=== PATIENT | female | born 1955 | race Caucasian/White ===

== ENCOUNTER 2016-08-12 15:10 | Observation (INO) ==
--- NOTE | 2016-08-12 18:53 | Emergency Department Note ---
Disposition Clinical Impression: Pneumoperitoneum of unknown etiology Disposition: Admitted As Inpatient Condition: Undetermined Referrals: Melodie Calhoun FRENCH TEACHER [Primary Care Provider] - Forms: Work/School Release, ED Satisfaction Letter Time of Disposition: 20:10 Abdominal Pain HPI - General Chief Complaint: ED Abdominal Pain Stated Complaint: Perferated bowel Time Seen by Provider: 08/12/16 18:51 Source: patient Mode of arrival: ambulatory Limitations: no limitations Nursing Notes Reviewed: Yes Vital Signs Reviewed: Yes - History of Present Illness HPI Narrative: 61-year-old female with history of GERD, arrives [facility] emergency department after receiving a CT scan today for chronic abdominal pain. Patient's CT scan revealed pneumatosis intestinalis, free air in the peritoneum, multiple dilated bowel. It was noted that the pneumatosis has been found multiple times. The patient states her last abdominal pain was roughly 2 weeks ago. She states she has no abdominal pain at this time other than when the patient is palpated in her lower abdomen. The patient does admit to intermittent nausea and vomiting. Her last episode of nausea and vomiting was this morning but she treats this to the oral contrast. The patient denies any other complaints according fevers, chills, difficulty breathing, chest pain, focalized weakness. The patient states that she was called by her PCP this morning and was instructed to come to the emergency department. She denies any other complaints. Pt Subjective Complaint: abdominal pain Pain Scale: 0 Improves with: nothing Worsens with: nothing Context: history of similar episodes Associated symptoms: Reports: nausea, vomiting. Denies: diarrhea, fever, chills , constipation, dysuria, hematemesis, hematochezia, melena, hematuria, anorexia Treatments prior to arrival: none - Related Data Allergies Allergy/AdvReac Type Severity Reaction Status Date / Time No Known Allergies Allergy Verified 08/12/16 15:20 All systems ED: reviewed and negative except as stated. Constitutional: Denies: fever, chills, weakness, weight change Eyes: Denies: eye pain, eye discharge, vision change Cardiovascular: Denies: chest pain, palpitations, dyspnea on exertion, edema, syncope Respiratory: Denies: cough, dyspnea, wheezes, hemoptysis, stridor Gastrointestinal: Reports: abdominal pain, nausea, vomiting. Denies: diarrhea, constipation, hematemesis, melena, hematochezia Genitourinary: Denies: dysuria, frequency, hematuria, discharge Musculoskeletal: Denies: back pain, neck pain, arthralgia, myalgia Integumentary: Denies: rash, abrasion, lesions Neurological: Denies: headache, weakness, numbness, paresthesias, confusion, abnormal gait, vertigo Abdominal Pain PMH - Past Medical History Medical history: Reports: GERD Female Surgical History: Reports: other HOUSEKEEPING/LAUNDRY history: Reports: no HOUSEKEEPING/LAUNDRY history Psychiatric history: Reports: anxiety - Social History Smoking status: Current every day smoker Alcohol use: Reports: none Drug use: Reports: none Physical Exam - General Limitations: no limitations General appearance: alert - Head Head exam: atraumatic, normocephalic, normal inspection - Eye Eye exam: Present: normal appearance, PERRL, EOMI - ENT ENT exam: normal exam, normal oropharynx, mucous membranes moist - Neck Neck exam: Present: normal inspection, full ROM, trachea midline - Respiratory Respiratory exam: Present: normal lung sounds bilaterally - Cardiovascular Cardiovascular exam: Present: regular rate, normal rhythm, normal heart sounds - Abdominal Exam Abdominal exam: Present: soft, tenderness, distention, diminished bowel sounds, ascites. Absent: Non-Tender, guarding, rebound, rigidity, heel tap sign, Valdez 's sign, Rovsing's sign - Extremities Exam Extremities exam: Present: normal inspection, full ROM. Absent: tenderness, pedal edema - Back Exam Back exam: Present: normal inspection, full ROM. Absent: tenderness - Neurological Exam Neurological exam: Present: alert, oriented X3 Course - Consultations Consultation #1: Spoke with Dr. Bear who will come to evaluate patient. She is resting comfortably at this time. Time: 19:40 Consultation #2: Spoke with Dr. Bear again and surgery after evaluating the patient. He states that he will admit the patient to their service and likely drain the pelvic fluid. Time: 20:09 Vital Signs Temperature 98.2 F 08/12/16 15:20 Pulse Rate 83 08/12/16 15:20 Respiratory Rate 16 08/12/16 15:20 Blood Pressure 151/90 08/12/16 15:20 O2 Sat by Pulse Oximetry 96 08/12/16 15:20 Temperature 98.2 F 08/12/16 15:20 Pulse Rate 78 08/12/16 19:03 Respiratory Rate 16 08/12/16 19:03 Blood Pressure 134/68 08/12/16 19:03 O2 Sat by Pulse Oximetry 97 08/12/16 19:03 Oxygen Delivery Oxygen Delivery Room Air Abdominal Pain - MDM Narrative Medical decision making narrative: Patient's physical exam is relatively benign with a benign workup here in the emergency department. After being evaluated by surgery, we will admit the patient to their service for further workup and evaluation as well as likely procedure. Patient agrees to this plan. - Medical Records Medical records reviewed: Yes I reviewed the patient's medical records. - Lab Data Lab results reviewed: Yes I reviewed the patient's lab results. Result diagrams: 08/12/16 18:59 08/12/16 18:59 Lab Results 08/12/16 08/12/16 08/12/16 Range/Units 18:59 18:59 18:59 WBC 6.5 (4.3-11.1) K/mcL RBC 4.82 (3.82-4.97) M/mcL Hgb 14.1 (11.5-15.4) g/dL Hct 42.5 (35.3-44.9) % MCV 88.2 (83.0-100.0) fL MCH 29.3 (28.0-33.3) pg MCHC 33.2 (31.6-35.5) g/dL RDW 13.2 (11.5-14.5) % Plt Count 333 (140-400) K/mcL MPV 9.4 (9.4-12.4) fL Immature Gran % 0.3 (0-4) % Seg Neutrophils % 56.1 % Lymphocytes % 30.8 % Monocytes % 6.8 % Eosinophils % 5.7 % Basophils % 0.3 % Neutrophils # 3.7 (1.6-8.9) K/mcL Lymphocytes # 2.0 (0.6-4.6) K/mcL Monocytes # 0.4 (0.0-1.3) K/mcL Eosinophils # 0.4 (0.0-0.6) K/mcL Basophils # 0.0 (0.0-0.2) K/mcL PT (9.4-12.1) Seconds INR APTT (26.0-36.0) Seconds Sodium 137 (136-145) mEq/L Potassium 3.9 (3.5-4.5) mEq/L Chloride 105 (98-109) mEq/L Carbon Dioxide 23 (19-29) mEq/L BUN 8 (7-20) mg/dL Creatinine 0.89 (0.57-1.11) mg/dL Est GFR ( Amer) > 60 (> 60) Est GFR (Non-Af Amer) > 60 (> 60) BUN/Creatinine Ratio 9 (6-26) Glucose 90 (70-99) mg/dL Calculated Osmolality 282 (280-300) Lactic Acid 0.9 (0.5-2.2) mmol/L Calcium 9.6 (8.6-10.8) mg/dL 08/12/16 Range/Units 18:59 WBC (4.3-11.1) K/mcL RBC (3.82-4.97) M/mcL Hgb (11.5-15.4) g/dL Hct (35.3-44.9) % MCV (83.0-100.0) fL MCH (28.0-33.3) pg MCHC (31.6-35.5) g/dL RDW (11.5-14.5) % Plt Count (140-400) K/mcL MPV (9.4-12.4) fL Immature Gran % (0-4) % Seg Neutrophils % % Lymphocytes % % Monocytes % % Eosinophils % % Basophils % % Neutrophils # (1.6-8.9) K/mcL Lymphocytes # (0.6-4.6) K/mcL Monocytes # (0.0-1.3) K/mcL Eosinophils # (0.0-0.6) K/mcL Basophils # (0.0-0.2) K/mcL PT 11.4 (9.4-12.1) Seconds INR 1.1 APTT 27.1 (26.0-36.0) Seconds Sodium (136-145) mEq/L Potassium (3.5-4.5) mEq/L Chloride (98-109) mEq/L Carbon Dioxide (19-29) mEq/L BUN (7-20) mg/dL Creatinine (0.57-1.11) mg/dL Est GFR ( Amer) (> 60) Est GFR (Non-Af Amer) (> 60) BUN/Creatinine Ratio (6-26) Glucose (70-99) mg/dL Calculated Osmolality (280-300) Lactic Acid (0.5-2.2) mmol/L Calcium (8.6-10.8) mg/dL - Radiology Data Radiology results reviewed: Yes I reviewed the patient's radiology results. Attestation Statement - Attestation Attestation: I examined this patient and my medical decision-making was reviewed with the [employer] SERVICES MANAGER/PA/Advanced Practice Nurse/Resident Physician. I agree with the documented findings, disposition and treatment plan as described except to the extent set forth below. Face to face time provided Patient appears in no acute distress on exam. Transcribed CT report results reviewed by me.
[2016-08-12] MEDS ORDERED: Famotidine 20 MG TABLET PO STA (19:01)
[2016-08-12 19:05] LABS: Basophils % 0.3 %; Eosinophils # 0.4 K/mcL (0.0-0.6); Eosinophils % 5.7 %; Hematocrit 42.5 % (35.3-44.9); Hemoglobin 14.1 g/dL (11.5-15.4); Immature Granulocytes % 0.3 % (0-4); Lymphocytes % 30.8 %; Mean Corpuscular HGB Conc 33.2 g/dL (31.6-35.5); Mean Corpuscular Hemoglobin 29.3 pg (28.0-33.3); Mean Corpuscular Volume 88.2 fL (83.0-100.0); Mean Platelet Volume 9.4 fL (9.4-12.4); Monocytes # 0.4 K/mcL (0.0-1.3); Monocytes % 6.8 %; Neutrophils # 3.7 K/mcL (1.6-8.9); Platelet Count 333 K/mcL (140-400); Red Blood Count 4.82 M/mcL (3.82-4.97); Red Cell Distribution Width 13.2 % (11.5-14.5); Segmented Neutrophils % 56.1 %
[2016-08-12 19:16] LABS: BUN/Creatinine Ratio 9 (6-26); Blood Urea Nitrogen 8 mg/dL (7-20); Calcium 9.6 mg/dL (8.6-10.8); Carbon Dioxide 23 mEq/L (19-29); Chloride 105 mEq/L (98-109); Glucose 90 mg/dL (70-99); Osmolality,Calculated 282 (280-300); Potassium 3.9 mEq/L (3.5-4.5); Sodium 137 mEq/L (136-145); eGFR For African Americans > 60 (> 60); eGFR For Non-African Americans > 60 (> 60)
[2016-08-12 19:20] LABS: INR 1.1; Prothrombin Time 11.4 Seconds (9.4-12.1)
[2016-08-12 19:23] LABS: Activated Partial Thrombo Time 27.1 Seconds (26.0-36.0)
--- NOTE | 2016-08-12 20:12 | General Surg History&Physical ---
Date of Encounter: 08/13/16 Time of Encounter: 20:09 Assessment and Plan (1) Pneumatosis intestinalis Current Visit: Yes Status: Acute The assessment and plan as outlined above was discussed with the patient and/or family members who expressed understanding and agreement. All questions were answered. I reviewed the results of the CT scan of the abdomen and pelvis with the patient and family. I am unsure as to the cause behind the patient's CT scan findings. I reviewed patient's prior evaluation by Dr. Fuentes in 2014 and the patient was treated with IV antibiotics for a short intrahosopital course and was followed as an outpatient. I think it would be appropriate to start antibiotics during this admission and plan on a CT scan guided drainage of the pelvic fluid in the am. Will request that the fluid be sent for cytology and culture. Additionally, will plan on an outpatient colonoscopy (patient has never had one) and will closely follow the patient as an outpatient once discharged. (2) Free intraperitoneal air Current Visit: Yes Status: Acute The assessment and plan as outlined above was discussed with the patient and/or family members who expressed understanding and agreement. All questions were answered. Please see the above A/P. History of Present Illness Chief complaint: ab HPI: Ms. Cardenas is a 61 year old female with a past mediical history significant for GERD Past Med Surg Social Fam HX - Past Medical History Medical history: GERD Psychiatric history: anxiety - Social History Smoking Status: Current every day smoker Smokeless Tobacco Status: No Alcohol use: none Drug use: none - Family History Mother Living Status: Age at : 85 Cause of : old age Father Living Status: Age at : 68 Cause of : cancer Hx Family Cancer: Yes (Unknown) Medications and Allergies ALPRAZolam [Xanax 0.5 MG Tablet] 0.5 mg PO BID PRN 08/12/16 [History] FLUoxetine HCl [Prozac] 40 mg PO QAM 08/12/16 [History] Ranitidine HCl [Zantac] 300 mg PO DAILY 08/12/16 [History] Allergies No Known Allergies Allergy (Verified 08/12/16 15:20) Review of Systems All systems PM: reviewed and no additional remarkable complaints except as stated All systems PM: A 10-system review of systems was performed and is negative for pertinent findings except as documented above in the HPI. General Surgery Exam Initial Vital Signs Temp Pulse Resp BP Pulse Ox 98.2 F 83 16 151/90 96 08/12/16 15:20 08/12/16 15:20 08/12/16 15:20 08/12/16 15:20 08/12/16 15:20 - General physical appearance well developed, well nourished, no distress - Eyes PERRL, normal ocular movement - Neck no bruits, trachea midline, other (mass noted in the left submandibular region. Non tender to palpation) - Respiratory normal expansion, normal respiratory effort, other (bilateral ronchi noted) - Cardiovascular Cardiovascular exam: Present: RRR, no murmurs/rubs/gallops - Abdomen Abdomen general surgery: Present: bowel sounds present, soft (mild lower abdominal pain to palpation.) - Neurologic Present: CN 2-12 grossly intact, normal coordination, normal sensation - Musculoskeletal Present: other (No clubbing, cyanosis, or edema.) - Psychiatric Psychiatric general surgery: Present: A&Ox3, appropriate, oriented to person, oriented to place Results - Labs 08/12/16 18:59 08/12/16 18:59 Diabetes panel 08/12/16 Range/Units 18:59 Sodium 137 (136-145) mEq/L Potassium 3.9 (3.5-4.5) mEq/L Chloride 105 (98-109) mEq/L Carbon Dioxide 23 (19-29) mEq/L BUN 8 (7-20) mg/dL Creatinine 0.89 (0.57-1.11) mg/dL Glucose 90 (70-99) mg/dL Calcium 9.6 (8.6-10.8) mg/dL Calcium panel 08/12/16 Range/Units 18:59 Calcium 9.6 (8.6-10.8) mg/dL Pituitary panel 08/12/16 Range/Units 18:59 Sodium 137 (136-145) mEq/L Potassium 3.9 (3.5-4.5) mEq/L Chloride 105 (98-109) mEq/L Carbon Dioxide 23 (19-29) mEq/L BUN 8 (7-20) mg/dL Creatinine 0.89 (0.57-1.11) mg/dL Glucose 90 (70-99) mg/dL Calcium 9.6 (8.6-10.8) mg/dL Adrenal panel 08/12/16 Range/Units 18:59 Sodium 137 (136-145) mEq/L Potassium 3.9 (3.5-4.5) mEq/L Chloride 105 (98-109) mEq/L Carbon Dioxide 23 (19-29) mEq/L BUN 8 (7-20) mg/dL Creatinine 0.89 (0.57-1.11) mg/dL Glucose 90 (70-99) mg/dL Calcium 9.6 (8.6-10.8) mg/dL All other labs normal. - Imaging Abdominal x-ray: report reviewed, image reviewed (noted pneumotosis intestinalisis. Small amount of free air. Fluid in the pelvis.)
[2016-08-12] MEDS ORDERED: Ondansetron 4 MG/2 ML VIAL IVP PRN (20:17)
[2016-08-12] MEDS ORDERED: *HR* Morphine 2 MG/ML SYRINGE IVP PRN (20:17)
[2016-08-13] MEDS: *HR* Heparin 5,000 UNIT/ML VIAL SQ SCH ×2 (01:19→07:50)
[2016-08-13] MEDS: 0.9 % Sodium Chloride 1,000 ML IVC SCH ×2 (01:20→10:20)
[2016-08-13] MEDS: Piperacillin/Tazobactam 3.375 GM in D5% in Water (Mini-Bag+) 100 ML IVPB SCH ×2 (01:21→10:17)
[2016-08-13 07:30] LABS: Bilirubin,Urine Negative (Negative); Blood,Urine Negative (Negative); Clarity,Urine Clear (Clear); Color,Urine Yellow (Yellow); Glucose,Urine (UA) Normal (Normal); Ketones,Urine Negative (Negative); Leukocyte Esterase,Urine Negative (Negative); Nitrite,Urine Negative (Negative); PH,Urine 6.5 pH Units (5.0-8.0); Protein,Urine Negative (Neg-Trace); Specific Gravity,Urine 1.011 (1.010-1.025); Urobilinogen,Urine Normal (Normal)
[2016-08-13] MEDS ORDERED: Pantoprazole 40 MG VIAL IVP SCH (09:00)
--- NOTE | 2016-08-13 09:48 | IR Procedure Note ---
Date of procedure: 08/13/16 Consent Obtained: Written consent Timeout: Correct patient and procedure verified, Correct site verified, Time out performed, Skin prep completed Local anesthetic: Lidocaine 1% Indications: Ascites, pneumatosis within bowel. Procedure Performed: Paracentesis for diagnostic testing Site/Technique: RLQ Results/Findings: 200ml of cloudy yellow fluid obtained. Sample sent to lab. Estimated blood loss (cc): 1 Complications: None; Tolerated procedure well Post Procedure Treatment Plan: Monitoring in pts room
--- NOTE | 2016-08-13 14:15 | Discharge Summary ---
Date of Encounter: 08/13/16 Time of Encounter: 14:00 - Discharge Diagnosis (1) Free intraperitoneal air Priority: Primary Status: Acute (2) Pneumatosis intestinalis Priority: Primary Status: Acute - Discharge Medications Prescriptions: Amoxicillin/Clavulanate [Augmentin] 875 mg PO BIDWM #28 tablet Home Medications: ALPRAZolam [Xanax 0.5 MG Tablet] 0.5 mg PO BID PRN 08/12/16 [History] FLUoxetine HCl [Prozac] 40 mg PO QAM 08/12/16 [History] Ranitidine HCl [Zantac] 300 mg PO DAILY 08/12/16 [History] Amoxicillin/Clavulanate [Augmentin] 875 mg PO BIDWM #28 tablet 08/13/16 [Rx] Allergies/Adverse Reactions: Allergies No Known Allergies Allergy (Verified 08/12/16 15:20) General Surgery Exam Initial Vital Signs Temp Pulse Resp BP Pulse Ox 98.2 F 83 16 151/90 96 08/12/16 15:20 08/12/16 15:20 08/12/16 15:20 08/12/16 15:20 08/12/16 15:20 - General physical appearance well developed, well nourished, no distress - Eyes normal ocular movement - ENT normal mucosa, atraumatic, normocephalic - Neck trachea midline - Respiratory normal expansion, normal respiratory effort, clear to auscultation - Cardiovascular Cardiovascular exam: Present: RRR, 15, 16 - Abdomen Abdomen general surgery: Present: bowel sounds present, soft, non tender - Integumentary Integumentary general surgery: Present: warm and dry - Neurologic Present: CN 2-12 grossly intact, normal coordination, normal sensation - Musculoskeletal Present: normal gait, normal posture - Psychiatric Psychiatric general surgery: Present: appropriate, oriented to person, oriented to place, oriented to time, speech is normal, memory intact Date of admission: 08/12/16 20:12 Primary care physician: Melodie Calhoun CNP Consults: 08/13/16 06:44 Consult to Interventional Radiology [CONS] Stat Consulting Provider: Radiology Interventional Cols Reason for Consult: Pneumotosis intestinalis with minute free air (this has been present for at least [address] scan guided drainage of pelvic fluid (for culture and cytology please). Call Completed: No Discharging clinician: Navin Mendoza. [facility]) Anticipated date of discharge: 08/13/16 - Patient Status Disposition: Home, Self-Care Condition: Good Functional capacity at discharge: independent ambulation Overall status at discharge: patient is back to baseline - Discharge Instructions Follow Up With: Melodie Calhoun CNP [Primary Care Provider] - Donnie Fuentes MD [Partnered Physician] - 08/17/16 9:45 am - Diet and Activity Activity: increase activity as tolerated Diet: advance to your usual diet - Hospital Course Hospital course: Ms. Cardenas is a 61 year old female presented to the hospital after having an abnormal outpatient CAT scan showing intra-abdominal free air and pneumatosis intestinalis. She also had free fluid in her pelvis. She was admitted to the hospital and started on IV antibiotic therapy. Interventional radiology was consulted for drainage of pelvic fluid collection. Fluid collections were sent for cultures and cytology. The patient has been started on a diet and is tolerating this without any symptoms. She denies any abdominal pain or nausea and vomiting. Her vital signs have been completely stable. Laboratory studies are stable. We will begin discharge planning to home on oral antibiotics and plan for outpatient follow-up in the upcoming days. The patient will need an outpatient colonoscopy for further evaluation. - Time Spent with Patient Total time spent providing and/or coordinating discharge services: Less than 30 minutes Labs on day of discharge: Labs from last 24 hours 08/13/16 06:15 Urine Color Yellow Urine Clarity Clear Urine pH 6.5 Ur Specific [place] 1.011 Urine Protein Negative Urine Glucose (UA) Normal Urine Ketones Negative Urine Blood Negative Urine Nitrite Negative Urine Bilirubin Negative Urine Urobilinogen Normal Ur Leukocyte Esterase Negative Ur Culture Indicated? NO - Impressions ITS Impressions Needle Aspiration CT 08/13/16 00:00 IMPRESSION: Successful CT guided fluid aspiration of a small amount of cloudy yellow ascites within the pelvis. D/ / Monroe Chris MD / Monroe Chris MD Interpreting Provider: Monroe Chris MD - Attending Attestation I examined this patient and my medical decision-making was reviewed with the INSTRUMENT TECH/PA/Advanced Practice Nurse/Resident Physician. I agree with the documented findings, disposition and treatment plan as described except to the extent set forth below.
[2016-08-13 15:08] VITALS: BP 119/70
== END 2016-08-13 15:20 | disposition home or self-care (01) ==
LOC: 3ANU 15:10 → EMEROO 15:10 → 3ANU 20:37
PROVIDERS: ADMIT Surgery; ATTEND Surgery
PROC: IRDRAIN (2016-08-13 11:00)

== ENCOUNTER 2016-11-15 16:00 | Inpatient (IN) ==
[2016-11-15 18:05] LABS: Bilirubin,Urine Small (Negative); Blood,Urine Negative (Negative); Clarity,Urine Cloudy (Clear); Color,Urine Dark Yellow (Yellow); Glucose,Urine (UA) Normal (Normal); Ketones,Urine Trace mg/dL (Negative); Leukocyte Esterase,Urine Small (Negative); Nitrite,Urine Negative (Negative); Protein,Urine Negative (Neg-Trace); Urobilinogen,Urine Normal (Normal)
[2016-11-15 18:07] LABS: Bacteria,Urine Moderate per hpf (None-Few); Squamous Epithelial Cell,Urine Many per lpf (None-Few); WBC,Urine 15-30 per hpf (0-3)
[2016-11-15 18:40] LABS: Basophils % 0.3 %; Eosinophils # 0.2 K/mcL (0.0-0.6); Hematocrit 43.2 % (35.3-44.9); Hemoglobin 13.5 g/dL (11.5-15.4); Immature Granulocytes % 0.3 % (0-4); Lymphocytes # 1.5 K/mcL (0.6-4.6); Lymphocytes % 19.6 %; Mean Corpuscular HGB Conc 31.3 g/dL (31.6-35.5); Mean Corpuscular Volume 89.6 fL (83.0-100.0); Mean Platelet Volume 9.4 fL (9.4-12.4); Monocytes # 0.4 K/mcL (0.0-1.3); Monocytes % 5.8 %; Neutrophils # 5.5 K/mcL (1.6-8.9); Platelet Count 418 K/mcL (140-400); Red Blood Count 4.82 M/mcL (3.82-4.97); Red Cell Distribution Width 14.4 % (11.5-14.5)
[2016-11-15 18:53] LABS: Albumin 3.1 g/dL (3.5-5.0); Albumin/Globulin Ratio 0.7 (1.1-2.2); Bilirubin,Direct 0.2 mg/dL (0.0-0.5); Bilirubin,Indirect 0.1 mg/dL (0.0-1.2); Bilirubin,Total 0.3 mg/dL (0.2-1.2); Calcium 9.3 mg/dL (8.6-10.8); Globulin 4.3 g/dL (2.4-3.5); Potassium 4.7 mEq/L (3.5-4.5); Total Protein 7.4 g/dL (6.0-8.3)
[2016-11-15] MEDS ORDERED: MetroNIDAZOLE 500 MG/100 ML 500 MG/100 ML BAG IVPB ONE (20:04)
[2016-11-15] MEDS ORDERED: 0.9 % Sodium Chloride 1,000 ML IVC ONE (20:04)
[2016-11-15] MEDS ORDERED: *HR* Morphine 2 MG/ML SYRINGE IVP ONE (20:07)
[2016-11-15] MEDS ORDERED: Piperacillin/Tazobactam 3.375 GM in D5% in Water (Mini-Bag+) 100 ML IVPB ONE (21:49)
--- NOTE | 2016-11-15 21:50 | Emergency Department Note ---
Disposition Clinical Impression: Pneumoperitoneum, Abdominal pain Disposition: Admitted As Inpatient Condition: Good Referrals: Melodie Calhoun, NADJA [Primary Care Provider] - Forms: Work/School Release, ED Satisfaction Letter Abdominal Pain HPI - General Chief Complaint: ED Abdominal Pain Stated Complaint: abd pain Time Seen by Provider: 11/15/16 19:34 Source: patient Mode of arrival: ambulatory Limitations: no limitations Nursing Notes Reviewed: Yes Vital Signs Reviewed: Yes - History of Present Illness HPI Narrative: 61-year-old female presents emergency Department with concerns of abdominal distention and pain. Patient has a history of abdominal distention with pneumoperitoneum on previous CT scans. Patient states that when this is happening in the past she has required admission with IV antibiotics. Patient states her pain has significantly worsened over the past 2-3 days. Patient reports multiple episodes of nonbilious, nonbloody emesis. She denies recent chest pain, shortness breath, palpitations, syncope, dysuria, hematuria, vaginal bleeding, vaginal discharge, hematochezia or melena. Last bowel movement was this morning Pain Scale: 9 - Related Data Home Medications Medication Instructions Recorded Confirmed ALPRAZolam [Xanax 0.5 MG Tablet] 0.5 mg PO BID PRN 08/12/16 08/12/16 FLUoxetine HCl [Prozac] 40 mg PO QAM 08/12/16 08/12/16 Ranitidine HCl [Zantac] 300 mg PO DAILY 08/12/16 08/12/16 Previous Rx's Medication Instructions Recorded Amoxicillin/Clavulanate [Augmentin] 875 mg PO BIDWM #28 tablet 08/13/16 Allergies Allergy/AdvReac Type Severity Reaction Status Date / Time No Known Allergies Allergy Verified 11/15/16 16:56 All systems ED: reviewed and negative except as stated. Constitutional: Reports: weakness. Denies: fever Cardiovascular: Denies: chest pain, palpitations, paroxysmal nocturnal dyspnea Respiratory: Denies: cough, dyspnea, wheezes Gastrointestinal: Reports: abdominal pain, nausea, vomiting. 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 She has generalized tenderness to palpation but there is no evidence of rigidity, guarding, or rebound. Neuro: A&O to person, place, time and situation. No focal deficits noted on exam Psychiatric: cooperative and appropriate mood and affect. - General Limitations: no limitations General appearance: alert Course - Consultations Consultation #1: I spoke with Dr. Guevara regarding patient's case and presentation who recommended adding Zosyn despite Cipro and Flagyl and starting D5 LR at 100 mL per hour. He states he will evaluate the patient in the emergency department. Time: 21:57 Vital Signs Temperature 97.7 F 11/15/16 16:56 Pulse Rate 97 11/15/16 16:56 Respiratory Rate 20 11/15/16 16:56 Blood Pressure 118/82 11/15/16 16:56 O2 Sat by Pulse Oximetry 99 11/15/16 16:56 Temperature 97.7 F 11/15/16 16:56 Pulse Rate 97 11/15/16 16:56 Respiratory Rate 20 11/15/16 16:56 Blood Pressure 118/82 11/15/16 16:56 O2 Sat by Pulse Oximetry 99 11/15/16 16:56 Oxygen Delivery Oxygen Delivery Room Air Abdominal Pain - Medical Records Medical records reviewed: Yes I reviewed the patient's medical records. - Lab Data Lab results reviewed: Yes I reviewed the patient's lab results. Result diagrams: 11/15/16 18:26 11/15/16 18:26 Lab Results 11/15/16 11/15/16 11/15/16 Range/Units 17:57 18:26 18:26 WBC 7.6 (4.3-11.1) K/mcL RBC 4.82 (3.82-4.97) M/mcL Hgb 13.5 (11.5-15.4) g/dL Hct 43.2 (35.3-44.9) % MCV 89.6 (83.0-100.0) fL MCH 28.0 (28.0-33.3) pg MCHC 31.3 L (31.6-35.5) g/dL RDW 14.4 (11.5-14.5) % Plt Count 418 H (140-400) K/mcL MPV 9.4 (9.4-12.4) fL Immature Gran % 0.3 (0-4) % Seg Neutrophils % 72.0 % Lymphocytes % 19.6 % Monocytes % 5.8 % Eosinophils % 2.0 % Basophils % 0.3 % Neutrophils # 5.5 (1.6-8.9) K/mcL Lymphocytes # 1.5 (0.6-4.6) K/mcL Monocytes # 0.4 (0.0-1.3) K/mcL Eosinophils # 0.2 (0.0-0.6) K/mcL Basophils # 0.0 (0.0-0.2) K/mcL Sodium 138 (136-145) mEq/L Potassium 4.7 H (3.5-4.5) mEq/L Chloride 104 (98-109) mEq/L Carbon Dioxide 26 (19-29) mEq/L BUN 12 (7-20) mg/dL Creatinine 1.54 H (0.57-1.11) mg/dL Est GFR ( Amer) 42 L (> 60) Est GFR (Non-Af Amer) 34 L (> 60) BUN/Creatinine Ratio 8 (6-26) Glucose 100 H (70-99) mg/dL Calculated Osmolality 286 (280-300) Calcium 9.3 (8.6-10.8) mg/dL Total Bilirubin 0.3 (0.2-1.2) mg/dL Direct Bilirubin 0.2 (0.0-0.5) mg/dL Indirect Bilirubin 0.1 (0.0-1.2) mg/dL AST 14 (5-34) Units/L ALT 8 (0-55) Units/L Alkaline Phosphatase 90 (38-126) Units/L Serum Total Protein 7.4 (6.0-8.3) g/dL Albumin 3.1 L (3.5-5.0) g/dL Globulin 4.3 H (2.4-3.5) g/dL Albumin/Globulin Ratio 0.7 L (1.1-2.2) Lipase 18 (8-78) Units/L Urine Color Dark Yellow (Yellow) Urine Clarity Cloudy A (Clear) Urine pH 6.0 (5.0-8.0) pH Units Ur Specific [place] 1.030 H (1.010-1.025) Urine Protein Negative (Neg-Trace) mg/dL Urine Glucose (UA) Normal (Normal) mg/dL Urine Ketones Trace H (Negative) mg/dL Urine Blood Negative (Negative) Urine Nitrite Negative (Negative) Urine Bilirubin Small H (Negative) Urine Urobilinogen Normal (Normal) mg/dL Ur Leukocyte Esterase Small H (Negative) Urine Microscopic WBC 15-30 H (0-3) per hpf Ur Squamous Epith Cells Many H (None-Few) per lpf Urine Bacteria Moderate H (None-Few) per hpf Ur Culture Indicated? YES A (NO) - Radiology Data Radiology results reviewed: Yes I reviewed the patient's radiology results.
[2016-11-15] MEDS: D5% in Lactated Ringers 1,000 ML IVC SCH (22:47)
[2016-11-15] MEDS ORDERED: Lidocaine Viscous Oral Soln 15 ML SOLUTION MM STA (23:04)
[2016-11-16] MEDS: D5% in Lactated Ringers 1,000 ML IVC SCH ×5 (01:01→19:37)
[2016-11-16 02:22] LABS: Prothrombin Time 10.7 Seconds (9.4-12.1)
[2016-11-16] MEDS: Pantoprazole 40 MG VIAL IVP SCH (09:15)
--- NOTE | 2016-11-16 09:25 | General Surg History&Physical ---
Date of Encounter: 11/15/16 Time of Encounter: 22:00 Assessment and Plan (1) Pneumatosis intestinalis Current Visit: No Status: Acute It is a bit perplexing when trying to elucidate a cause of the patient's radiological findings. While normally free air and pneumotosis would usually require emergent surgery, her exam and past history are enough to reconsider and attempt non operative therapy. She has abdominal pain, but she is not peritoneal. She is distended, but she is not obstructed. her WBC and lactate are within normal limits, she is having bowel function. When evaluated as a whole, the decision was made to attempt non operative therapy at this time as she does not require emergent surgery. - NPO - IVF: D5LR, change to MIVF once urinating at least 0.5cc/kg/hr - pain control: morphine - abx: zosyn - NG tube to LIWS - activity as tolerated - strict I/O, vitals q4hrs - cardiology evaluation for risk stratification and patient optimization in case surgery is required - if patient continues to do well, then can either plan for follow up in clinic with plans for elective diagnostic laparoscopy possible exploratory laparotomy or diag lap while inpatient; if she declines, then emergent surgery this admission - DVT prophylaxis The assessment and plan as outlined above was discussed with the patient and/or family members who expressed understanding and agreement. All questions were answered. (2) Pneumoperitoneum Current Visit: Yes Status: Acute It is a bit perplexing when trying to elucidate a cause of the patient's radiological findings. While normally free air and pneumotosis would usually require emergent surgery, her exam and past history are enough to reconsider and attempt non operative therapy. She has abdominal pain, but she is not peritoneal. She is distended, but she is not obstructed. her WBC and lactate are within normal limits, she is having bowel function. When evaluated as a whole, the decision was made to attempt non operative therapy at this time as she does not require emergent surgery. - NPO - IVF: D5LR, change to MIVF once urinating at least 0.5cc/kg/hr - pain control: morphine - abx: zosyn - NG tube to LIWS - activity as tolerated - strict I/O, vitals q4hrs - cardiology evaluation for risk stratification and patient optimization in case surgery is required - if patient continues to do well, then can either plan for follow up in clinic with plans for elective diagnostic laparoscopy possible exploratory laparotomy or diag lap while inpatient; if she declines, then emergent surgery this admission - DVT prophylaxis The assessment and plan as outlined above was discussed with the patient and/or family members who expressed understanding and agreement. All questions were answered. (3) Abdominal pain Current Visit: Yes Status: Acute generalized but non peritoneal on exam - morphine for pain control; if pain remains poorly controlled then it is likely her disease has progressed and she requires sugery; The assessment and plan as outlined above was discussed with the patient and/or family members who expressed understanding and agreement. All questions were answered. Qualifiers: Abdominal location: generalized Qualified Code(s): R10.84 - Generalized abdominal pain (4) Acute renal failure Current Visit: No Status: Acute IVF AM labs, trend Cr, BUN strict I/O to assess UOP (0.5cc/kg/hr) The assessment and plan as outlined above was discussed with the patient and/or family members who expressed understanding and agreement. All questions were answered. Qualifiers: Acute renal failure type: unspecified Qualified Code(s): N17.9 - Acute kidney failure, unspecified (5) SIRS due to infectious process with acute organ dysfunction Current Visit: No Status: Acute - NPO -IVF abx trend labs The assessment and plan as outlined above was discussed with the patient and/or family members who expressed understanding and agreement. All questions were answered. History of Present Illness Chief complaint: abdominal pain HPI: Ms. Cardenas is a 61 year old female who presents with 2-3 days of worsening abdominal pain localized to the mid abdomen with radiation towards her back. The patient states the pain is associated with nausea and vomiting (non bloody, non bilious) which she describes as a 'white foam'. No reported fevers. The patient also reports abdominal distension, but is still having normal bowel function (flatus, stool that is non bloody), and tolerating a diet. She states that her post prandial (about an hour). She had similar symptoms about 3 months ago which were treated non operatively with antibiotics. She also had a recent colonoscopy which was unremarkable besides diverticulosis. General surgery was consulted for evaluation and management. Past Med Surg Social Fam HX - Past Medical History Medical history: COPD (likely due to smoking history but undiagnosed ), GERD, hyperlipidemia Psychiatric history: anxiety, depression - Past Surgical History Surgical History: no surgical history - Social History Smoking Status: Current every day smoker Packs per day: 1 ppd Smokeless Tobacco Status: No Alcohol use: none Drug use: none - Family History Mother Living Status: Father Living Status: Hx Family Cancer: Yes (Unknown) - Additional Family History Additional family history: non contributory Medications and Allergies ALPRAZolam [Xanax 0.5 MG Tablet] 0.5 mg PO BID PRN 08/12/16 [History] FLUoxetine HCl [Prozac] 40 mg PO QAM 08/12/16 [History] Ranitidine HCl [Zantac] 300 mg PO DAILY 08/12/16 [History] Cholecalciferol (Vitamin D3) [Vitamin D3] 10,000 unit PO DAILY 11/15/16 [History ] 3 Allergy/AdvReac Type Severity Reaction Status Date / Time No Known Allergies Allergy Verified 11/15/16 16:56 Review of Systems All systems PM: reviewed and no additional remarkable complaints except as stated All systems PM: A 10-system review of systems was performed and is negative for pertinent findings except as documented above in the HPI. General Surgery Exam Initial Vital Signs Temp Pulse Resp BP Pulse Ox 97.7 F 97 20 118/82 99 11/15/16 16:56 11/15/16 16:56 11/15/16 16:56 11/15/16 16:56 11/15/16 16:56 - General physical appearance well nourished, no distress (but is uncomfortable) - Eyes other (no scleral icterus), normal ocular movement - ENT atraumatic, normocephalic - Respiratory normal expansion, normal respiratory effort, clear to auscultation, other (no audible wheezes on exam) - Abdomen Abdomen general surgery: Present: soft, tender Abdominal Tenderness: Present: diffusely (but non peritoneal) Hernia: Present: none - Integumentary Integumentary general surgery: Present: warm and dry - Neurologic Present: CN 2-12 grossly intact - Psychiatric Psychiatric general surgery: Present: A&Ox3 Results - Labs 11/15/16 18:26 11/15/16 18:26 Abnormal lab results MCHC 31.3 g/dL (31.6-35.5) L 11/15/16 18:26 Plt Count 418 K/mcL (140-400) H 11/15/16 18:26 Potassium 4.7 mEq/L (3.5-4.5) H 11/15/16 18:26 Creatinine 1.54 mg/dL (0.57-1.11) H 11/15/16 18:26 Est GFR ( Amer) 42 (> 60) L 11/15/16 18:26 Est GFR (Non-Af Amer) 34 (> 60) L 11/15/16 18:26 Glucose 100 mg/dL (70-99) H 11/15/16 18:26 Albumin 3.1 g/dL (3.5-5.0) L 11/15/16 18:26 Globulin 4.3 g/dL (2.4-3.5) H 11/15/16 18:26 Albumin/Globulin Ratio 0.7 (1.1-2.2) L 11/15/16 18:26 Urine Clarity Cloudy (Clear) A 11/15/16 17:57 Ur Specific [place] 1.030 (1.010-1.025) H 11/15/16 17:57 Urine Ketones Trace mg/dL (Negative) H 11/15/16 17:57 Urine Bilirubin Small (Negative) H 11/15/16 17:57 Ur Leukocyte Esterase Small (Negative) H 11/15/16 17:57 Urine Microscopic WBC 15-30 per hpf (0-3) H 11/15/16 17:57 Ur Squamous Epith Cells Many per lpf (None-Few) H 11/15/16 17:57 Urine Bacteria Moderate per hpf (None-Few) H 11/15/16 17:57 Ur Culture Indicated? YES (NO) A 11/15/16 17:57 All other labs normal. - Imaging CT scan - abdomen: report reviewed, image reviewed CT scan - chest: report reviewed, image reviewed CT scan - pelvis: report reviewed, image reviewed (dilated small bowel; (+) pneumotosis intestinalis; (+)pneumoperitoneum; (+) ascites) - VTE Documentation of Mechanical Device: Intermittent pneumatic compression device
--- NOTE | 2016-11-16 11:05 | General Surgery Progress Note ---
<Tamara Lindsey - Last Filed: 11/16/16 11:24> Date of Encounter: 11/16/16 Time of Encounter: 11:04 - Assessment and Plan (1) Pneumoperitoneum of unknown etiology Current Visit: No Status: Acute Cautiously optimistic given unlear origin per images. Will continue to monitor. Attempted trial of clamping NG tube, but pt felt nauseated so we advanced NG tube 5 cm and returned to [facility]. Will consider trial again later this afternoon pending resolving of symptoms. She reports small amounts of flatus this am. She reports a small improvement in abdominal discomfort. Continue supportive care and discomfort management NG tube lower intermittent wall suction NPO hydromorphone PRN IV PRN Zofran and promethazine for nausea and vomiting. cardiology consult it for risk stratification and optimization (2) Nausea & vomiting Current Visit: Yes Status: Acute See above Qualifiers: Vomiting type: unspecified Vomiting Intractability: unspecified Qualified Code(s): R11.2 - Nausea with vomiting, unspecified (3) Abdominal pain Current Visit: Yes Status: Acute Qualifiers: Abdominal location: generalized Qualified Code(s): R10.84 - Generalized abdominal pain Subjective Patient reports: no new complaints, feels better, still having pain, pain is less, voiding w/o difficulty, flatus, no bowel movement, nausea Narrative: States she feels thirsty for "a good cup of coffee." Objective Vital Signs - Last 8 Hours Temp Pulse Resp BP Pulse Ox 11/16/16 06:58 98.3 F 89 18 130/84 92 11/16/16 03:58 98.5 F 87 18 124/83 93 Intake and Output 11/15/16 11/16/16 11/16/16 23:59 07:59 15:59 Intake Total 0 / 0 1000 / 1000 Output Total 550 / 550 Balance -550 / -550 1000 / 1000 Intake: IV Fluids 1000 / 1000 D5% & Lact. Ringers 1000 1000 / 1000 Ml Bag 1,000 ML @ 100 mls /hr IVC .Q10H YASIR Rx#: [id number] Oral 0 / 0 0 / 0 Output: Urine 300 / 300 Gastric Drainage 250 / 250 Other: Meal NPO Percent of Meal Consumed 0% Weight 58.695 kg Blood Glucose* 87 Patient Weight 11/16/16 23:59 Weight 58.695 kg - General physical appearance well developed, no distress, moderate pain - Eyes normal ocular movement - ENT normal mucosa (Left NG noted), atraumatic, normocephalic - Neck Neck exam: trachea midline, no venous distension - Respiratory normal expansion, normal respiratory effort, clear to auscultation - Cardiovascular Cardiovascular exam: Present: RRR - Abdomen Abdomen: Present: bowel sounds present (Hypoactive and faint), soft, distended, tender Hernia: none - Integumentary no rash, no growths - Neurologic CN 2-12 grossly intact - Musculoskeletal normal posture - Psychiatric oriented to time, oriented to person, oriented to place, memory intact - Labs 11/15/16 18:26 11/15/16 18:26 - VTE Documentation of Mechanical Device: Intermittent pneumatic compression device Consult Discharge Plan - Plan Referrals: Melodie Calhoun, DENIAL RESOLUTION SPECIALIST [Primary Care Provider] - <Sacha Guevara - Last Filed: 11/16/16 15:05> Date of Encounter: 11/16/16 - Assessment and Plan (1) Pneumatosis intestinalis Current Visit: No Status: Acute (2) Pneumoperitoneum Current Visit: Yes Status: Acute (3) Abdominal pain Current Visit: Yes Status: Acute Qualifiers: Abdominal location: generalized Qualified Code(s): R10.84 - Generalized abdominal pain (4) Acute renal failure Current Visit: No Status: Acute Qualifiers: Acute renal failure type: unspecified Qualified Code(s): N17.9 - Acute kidney failure, unspecified (5) SIRS due to infectious process with acute organ dysfunction Current Visit: No Status: Acute Objective Vital Signs - Last 8 Hours Temp Pulse Resp BP Pulse Ox 11/16/16 11:14 97.5 F L 93 15 150/91 94 Intake and Output 11/15/16 11/16/16 11/16/16 23:59 07:59 15:59 Intake Total 0 / 0 1000 / 1000 Output Total 550 / 550 525 / 525 Balance -550 / -550 475 / 475 Intake: IV Fluids 1000 / 1000 D5% & Lact. Ringers 1000 1000 / 1000 Ml Bag 1,000 ML @ 100 mls /hr IVC .Q10H YASIR Rx#: [id number] Oral 0 / 0 0 / 0 Output: Urine 300 / 300 300 / 300 Gastric Drainage 250 / 250 225 / 225 Other: Meal NPO Percent of Meal Consumed 0% Weight 58.695 kg Blood Glucose* 87 88 Patient Weight 11/16/16 23:59 Weight 58.695 kg - Labs 11/15/16 18:26 11/15/16 18:26 - Attending Attestation I have seen and examined the patient, reviewed labs. I agree with the above assessment and plan. 61yof with abdominal distension, but decreased from yesterday; no reports of pain; wbc wnl; one episode of nausea when NG tube clamped. Will keep to suction and reassess in AM; Keep NPO except ice chips, NG to suction, ambulate as tolerated
[2016-11-16] MEDS ORDERED: Ondansetron 4 MG/2 ML VIAL IVP PRN (11:06)
[2016-11-16] MEDS ORDERED: *HR* Promethazine 25 MG/ML VIAL IVP PRN (11:06)
[2016-11-16] MEDS ORDERED: Chloraseptic Spray 177 ML BOTTLE MM PRN (11:25)
[2016-11-16] MEDS ORDERED: *HR* HYDROmorphone 2 MG/ML SYRINGE IVP PRN (11:25)
[2016-11-16] MEDS ORDERED: *HR* HYDROmorphone (PF) 1 MG/ML SYRINGE IVP PRN (11:26)
--- NOTE | 2016-11-16 13:32 | Cardiology Consult Note ---
<Nakul Pendleton R - Last Filed: 11/16/16 13:29> Date of Encounter: 11/16/16 Time of Encounter: 13:29 Assessment and Plan (1) Pre-operative cardiovascular examination Current Visit: Yes Status: Acute Pre-op risk stratification for potential ex-lap for pneumoperitoneum. No cardiac hx. Denies any hx of ischemic evaluation. Only risk factor for heart disease is tobacco abuse--1PPD x 40 years. Prior to hospitalization pt reports being able to climb 2 flights of stairs, walk a block---achieve 4 METS without dyspnea or chest pain. Obtain EKG. None obtained during current stay. Check echo to evaluate structure and function. If no significant findings on echo, pt will be low risk from a cardiac standpoint to undergo ex-lap. Will follow-up on echo results. Will sign off if no significant findings. Discussion w patient/family: The assessment and plan as outlined above was discussed with the patient and/or family members who expressed understanding and agreement. All questions were answered. Thank you for involving us in the care of your patient. Please call with any questions. I will discuss all the above with Dr. Beckham and make changes as necessary. History of Present Illness Consult date: 11/16/16 Requesting physician: Tamara Lindsey Consult reason: pre-op risk stratification Chief complaint: abdominal pain History of present illness: Ms. Cardenas is a 61 year old female with PMH of GERD and tobacco abuse that presented with 2-3 days of worsening abdominal pain localized to the mid abdomen with radiation towards her back. Pain ssociated with nausea and vomiting (non bloody, non bilious) which she describes as a 'white foam'. Pt found to have pneumoperitoneum, currently attempting to be medically managed by general surgery team. Cardiology consulted for risk stratification in the event she would need surgery. Pt denies chest pain or dyspnea. Pt denies any cardiac hx--has never had a LHC or stress test. Reports she is one of 15 children and only 2 of her siblings have heart disease, none before age 50. She smokes 1 PPD x 40 years. Prior to this hospitalization reports being functional at home, able to achieve 4 METS without cardiac symptoms. Past Med Surg Social Fam HX - Past Medical History Medical history: COPD (likely due to smoking history but undiagnosed ), GERD, hyperlipidemia Psychiatric history: anxiety, depression - Past Surgical History Surgical History: no surgical history - Social History Smoking Status: Current every day smoker Packs per day: 1 ppd Smokeless Tobacco Status: No Alcohol use: none Drug use: none - Family History Mother Living Status: Father Living Status: Hx Family Cancer: Yes (Unknown) Medications and Allergies ALPRAZolam [Xanax 0.5 MG Tablet] 0.5 mg PO BID PRN 08/12/16 [History] FLUoxetine HCl [Prozac] 40 mg PO QAM 08/12/16 [History] Ranitidine HCl [Zantac] 300 mg PO DAILY 08/12/16 [History] Cholecalciferol (Vitamin D3) [Vitamin D3] 10,000 unit PO DAILY 11/15/16 [History ] 3 Allergy/AdvReac Type Severity Reaction Status Date / Time No Known Allergies Allergy Verified 11/15/16 16:56 All Systems Review: A 10-system review of systems was performed and is negative for pertinent findings except as documented above in the HPI. - Gastrointestinal Gastrointestinal: abdominal pain, nausea Physical Examination Vital Signs, Last 4 Hours Temp Pulse Resp BP Pulse Ox 11/16/16 11:14 97.5 F L 93 15 150/91 94 Vital Signs Temp Pulse Resp BP Pulse Ox 11/16/16 11:14 97.5 F L 93 15 150/91 94 11/16/16 06:58 98.3 F 89 18 130/84 92 11/16/16 03:58 98.5 F 87 18 124/83 93 11/16/16 00:53 98.4 F 79 15 134/84 96 11/16/16 00:33 16 126/68 11/15/16 22:51 85 14 123/85 96 11/15/16 16:56 97.7 F 97 20 118/82 99 Intake and Output 11/15/16 11/16/16 11/16/16 23:59 07:59 15:59 Intake Total 1300 / 1300 0 / 0 1000 / 1000 Output Total 100 / 100 550 / 550 525 / 525 Balance 1200 / 1200 -550 / -550 475 / 475 Intake: IV Fluids 1300 / 1300 1000 / 1000 0.9 % Sodium Chloride 1, 1000 / 1000 000 ML @ 9999 mls/hr IVC .Q6M ONE Rx#:[id number] D5% & Lact. Ringers 1000 1000 / 1000 Ml Bag 1,000 ML @ 100 mls /hr IVC .Q10H YASIR Rx#: [id number] Cipro Premix 400 MG/200 200 / 200 ML 400 mg In 200 ml @ 200 mls/hr IVPB NOW STA Rx#: [id number] Flagyl Premix 500 MG/100 100 / 100 ML 500 mg In 100 ml @ 100 mls/hr IVPB ONCE ONE Rx# :[id number] Oral 0 / 0 0 / 0 Output: Urine 300 / 300 300 / 300 Gastric Drainage 100 / 100 250 / 250 225 / 225 Left Nare 100 / 100 Other: Meal NPO Percent of Meal Consumed 0% Stool Characteristics Normal for Patient Weight 58.695 kg 58.695 kg Blood Glucose* 87 88 Patient Weight 11/16/16 23:59 Weight 58.695 kg General: Conversant, No Apparent Distress HEENT: Atraumatic, Normocephaly, Mucus Membranes Moist Neck: No JVD, Normal carotid pulses Cardiac: Reg Rate and Rhythm, Normal S1 and S2, No Murmur Lungs: Normal Breath Sounds, No Wheeze, Rales, Rhonchi Neuro: Alert and responsive, No focal deficits noted Abdomen: Soft Skin: No rashes noted on visualized skin Musculoskeletal: No Chest Wall Tenderness Extremities: No Clubbing, No Cyanosis, No Edema, Normal Pulses Results 11/15/16 18:26 11/15/16 18:26 Lab Results 11/16/16 01:03 INR 1.0 Short CBC 11/15/16 Range/Units 18:26 WBC 7.6 (4.3-11.1) K/mcL Hgb 13.5 (11.5-15.4) g/dL Hct 43.2 (35.3-44.9) % Plt Count 418 H (140-400) K/mcL Neutrophils # 5.5 (1.6-8.9) K/mcL BMP 11/15/16 Range/Units 18:26 Sodium 138 (136-145) mEq/L Potassium 4.7 H (3.5-4.5) mEq/L Chloride 104 (98-109) mEq/L Carbon Dioxide 26 (19-29) mEq/L BUN 12 (7-20) mg/dL Creatinine 1.54 H (0.57-1.11) mg/dL Glucose 100 H (70-99) mg/dL Calcium 9.3 (8.6-10.8) mg/dL Liver Function 11/15/16 Range/Units 18:26 Total Bilirubin 0.3 (0.2-1.2) mg/dL Direct Bilirubin 0.2 (0.0-0.5) mg/dL AST 14 (5-34) Units/L ALT 8 (0-55) Units/L Alkaline Phosphatase 90 (38-126) Units/L Albumin 3.1 L (3.5-5.0) g/dL Urine 11/15/16 Range/Units 17:57 Urine Color Dark Yellow (Yellow) Urine Clarity Cloudy A (Clear) Urine pH 6.0 (5.0-8.0) pH Units Ur Specific [place] 1.030 H (1.010-1.025) Urine Protein Negative (Neg-Trace) mg/dL Urine Glucose (UA) Normal (Normal) mg/dL Consult Discharge Plan - Plan Referrals: Melodie Calhoun, MANAGER WOUND CARE [Primary Care Provider] - <Vesta Beckham - Last Filed: 11/16/16 16:53> Date of Encounter: 11/16/16 Assessment and Plan Discussion w patient/family: The assessment and plan as outlined above was discussed with the patient and/or family members who expressed understanding and agreement. All questions were answered. Thank you for involving us in the care of your patient. Please call with any questions. History of Present Illness History of present illness: Ms. Cardenas is a 61 year old female All Systems Review: A 10-system review of systems was performed and is negative for pertinent findings except as documented above in the HPI. Physical Examination Vital Signs, Last 4 Hours Temp Pulse Resp BP Pulse Ox 11/16/16 16:14 98.3 F 80 15 147/80 92 Results 11/15/16 18:26 11/15/16 18:26 Lab Results 11/16/16 01:03 INR 1.0 - Attending Attestation I examined this patient and my medical decision-making was reviewed with the Resident Physician. I agree with the documented findings, disposition and treatment plan. Ms. Cardenas presented with abdominal pain thought to be related to pneumoperitoneum being medically managed presently. However, primary team may entertain surgery and have asked us to evaluate the patient preoperatively. The patient denies any prior cardiac history. Prior to her symptoms, she was physically active able to achieve at least 4 METS. She denies any prior cardiac symptoms. Recommend obtaining ECG and echo for risk stratification prior to consideration for surgery. Overall, only risk factor preoperatively is smoking. Her RCRI score is 0 placing her at 0.4% risk for major cardiac event.
[2016-11-16] MEDS: Piperacillin/Tazobactam 3.375 GM in D5% in Water (Mini-Bag+) 100 ML IVPB SCH (15:37)
[2016-11-17] MEDS: Piperacillin/Tazobactam 3.375 GM in D5% in Water (Mini-Bag+) 100 ML IVPB SCH ×2 (00:26→08:15)
[2016-11-17] MEDS: D5% in Lactated Ringers 1,000 ML IVC SCH (05:40)
[2016-11-17 06:00] LABS: Basophils % 0.6 %; Eosinophils # 0.3 K/mcL (0.0-0.6); Hematocrit 37.4 % (35.3-44.9); Hemoglobin 12.1 g/dL (11.5-15.4); Immature Granulocytes % 0.5 % (0-4); Immature Platelets 2.9 % (1.1-6.1); Lymphocytes # 1.2 K/mcL (0.6-4.6); Lymphocytes % 18.4 %; Mean Corpuscular HGB Conc 32.4 g/dL (31.6-35.5); Mean Corpuscular Hemoglobin 28.3 pg (28.0-33.3); Mean Corpuscular Volume 87.6 fL (83.0-100.0); Mean Platelet Volume 10.6 fL (9.4-12.4); Monocytes # 0.5 K/mcL (0.0-1.3); Monocytes % 6.9 %; Platelet Count 324 K/mcL (140-400); Red Blood Count 4.27 M/mcL (3.82-4.97); Red Cell Distribution Width 14.2 % (11.5-14.5); Segmented Neutrophils % 68.6 %
[2016-11-17 06:26] LABS: Neutrophils # 4.5 K/mcL (1.6-8.9)
[2016-11-17 06:27] LABS: Platelet Estimate Normal (Normal)
[2016-11-17] MEDS: Pantoprazole 40 MG VIAL IVP SCH (08:15)
[2016-11-17 09:35] LABS: Calcium 8.7 mg/dL (8.6-10.8); Potassium 3.6 mEq/L (3.5-4.5)
[2016-11-17 09:37] LABS: Albumin 2.5 g/dL (3.5-5.0); Albumin/Globulin Ratio 0.7 (1.1-2.2); Bilirubin,Total 0.3 mg/dL (0.2-1.2); Calcium 8.7 mg/dL (8.6-10.8); Globulin 3.7 g/dL (2.4-3.5); Potassium 3.6 mEq/L (3.5-4.5); Total Protein 6.2 g/dL (6.0-8.3)
[2016-11-17] MEDS ORDERED: ALPRAZolam 0.5 MG TABLET PO PRN (09:56)
--- NOTE | 2016-11-17 10:04 | Discharge Summary ---
Date of Encounter: 11/17/16 Time of Encounter: 09:30 - Discharge Diagnosis (1) Pneumoperitoneum of unknown etiology Priority: Primary Status: Acute (2) Nausea & vomiting Priority: Secondary Status: Acute Qualifiers: Vomiting type: unspecified Vomiting Intractability: unspecified Qualified Code(s): R11.2 - Nausea with vomiting, unspecified (3) Abdominal pain Priority: Secondary Status: Acute Qualifiers: Abdominal location: generalized Qualified Code(s): R10.84 - Generalized abdominal pain - Discharge Medications Prescriptions: Ondansetron ODT [Zofran ODT] 4 mg SL Q4HR PRN #30 tab.rapdis PRN Reason: Nausea OxyCODONE/APAP 5/325 [Percocet 5/325 MG] 1 each PO Q4HR #30 tablet Amoxicillin/Clavulanate [Augmentin] 875 mg PO BIDWM #14 tablet Docusate [Colace] 100 mg PO BID #60 capsule Home Medications: ALPRAZolam [Xanax 0.5 MG Tablet] 0.5 mg PO BID PRN 08/12/16 [History] FLUoxetine HCl [Prozac] 40 mg PO QAM 08/12/16 [History] Ranitidine HCl [Zantac] 300 mg PO DAILY 08/12/16 [History] Cholecalciferol (Vitamin D3) [Vitamin D3] 10,000 unit PO DAILY 11/15/16 [History ] Amoxicillin/Clavulanate [Augmentin] 875 mg PO BIDWM #14 tablet 11/17/16 [Rx] Docusate [Colace] 100 mg PO BID #60 capsule 11/17/16 [Rx] Ondansetron ODT [Zofran ODT] 4 mg SL Q4HR PRN #30 tab.rapdis 11/17/16 [Rx] OxyCODONE/APAP 5/325 [Percocet 5/325 MG] 1 each PO Q4HR #30 tablet 11/17/16 [Rx] Allergies/Adverse Reactions: 3 Allergy/AdvReac Type Severity Reaction Status Date / Time No Known Allergies Allergy Verified 11/15/16 16:56 General Surgery Exam Initial Vital Signs Temp Pulse Resp BP Pulse Ox 97.7 F 97 20 118/82 99 11/15/16 16:56 11/15/16 16:56 11/15/16 16:56 11/15/16 16:56 11/15/16 16:56 - General physical appearance well developed, well nourished, no distress - Eyes PERRL, normal ocular movement - ENT normal pinna, normal nares, normal mucosa, no hearing loss, no congestion - Neck no masses, no bruits, trachea midline, no lymphadectomy, no venous distension - Respiratory normal expansion, normal respiratory effort, clear to percussion, clear to auscultation - Cardiovascular Cardiovascular exam: Present: RRR, 15, 16 - Abdomen Abdomen general surgery: Present: bowel sounds present, soft, non tender - Integumentary Integumentary general surgery: Present: warm and dry, no abnormal pigmentation - Neurologic Present: CN 2-12 grossly intact, normal coordination, normal sensation - Musculoskeletal Present: normal gait, normal posture - Psychiatric Psychiatric general surgery: Present: appropriate, oriented to person, oriented to place, oriented to time, speech is normal, memory intact Date of admission: 11/16/16 00:10 Primary care physician: Melodie Calhoun CNP Consults: 11/16/16 11:11 Consult to Cardiology [CONS] Routine Comment: Dr. Beckham Consulting Provider: Card[facility] [place] Reason for Consult: Risk stratification and optimization for possible ex-lap with Dr. Guevara Time Notified: 11:12 Call Completed: Yes Discharging clinician: Sacha Lindsey) - Patient Status Disposition: Home, Self-Care Condition: Good Overall status at discharge: patient is progressing back to baseline - Discharge Instructions Follow Up With: Melodie Calhoun CNP [Primary Care Provider] - Sacha Guevara MD [Non-Partnered Physician] - 12/02/16 1:00 pm (Complete CT/ abdomen and pelvis with PO and IV contrast on 12/02/2016 prior to appointment with Dr. Guevara. Order has been placed in [facility]) Additional Instructions: Report any increase in abdominal pain, fevers, nausea, or vomiting. Follow-up in office as directed. Obtain the CT scan prior to your appointment as directed. Takes Zofran for nausea. You may take oxycodone for abdominal discomfort if needed. Take Colace while taking narcotics, may hold for loose stool. Finish all of your antibiotics as directed. - Diet and Activity Activity: increase activity as tolerated Diet: advance to your usual diet - Hospital Course Hospital course: Ms. Cardenas is a 61 year old female who presented with 2-3 days of worsening abdominal pain localized to the mid abdomen with radiation towards her back. She stated the abdominal pain was associated with nausea and vomiting, which she described as white foam, denied fevers, reported abdominal distention but still having normal bowel function. She stated the symptoms were similar to an episode 3 months ago which time she was treated non-operatively with antibiotics. She also reported a recent colonoscopy that was unremarkable with the exception of diverticulosis. Her CT demonstrated pneumotosis and dilated loops of small bowel. Her symptoms were not consistent with a pneumoperitoneum and she was therefore treated conservatively. She had an NG tube with little output for a short period of time, which was d/c'd on 11/17/2016. Cardiology was consult it for risk stratification and optimization for plans for an elective diagnostic laparoscopic possible exploratory laparotomy in the future. She had an EKG and echo which were unremarkable and cardiology has provided a low risk stratification. She denies nausea, vomiting, or abdominal pain at this time. She does desire dispo at this time. We will advance her diet advance her diet and begin discharge planning with follow-up in the office in 2-[address] with IV and PO contrast prior to this appointment. She will be discharged on oxycodone, for pain Colace, and Zofran if needed for nausea. She will be discharged on Augmentin for 7 days. - Time Spent with Patient Total time spent providing and/or coordinating discharge services: Labs on day of discharge: Labs from last 24 hours 11/17/16 11/17/16 11/17/16 09:14 09:14 08:17 WBC RBC Hgb Hct MCV MCH MCHC RDW Plt Count MPV Immature Gran % Seg Neutrophils % Lymphocytes % Monocytes % Eosinophils % Basophils % Neutrophils # Lymphocytes # Monocytes # Eosinophils # Basophils # Platelet Estimate Immature Plt Fraction Sodium 139 140 Potassium 3.6 3.6 Chloride 109 109 Carbon Dioxide 21 22 BUN 5 L 6 L Creatinine 1.13 H 1.16 H Est GFR ( Amer) 59 L 58 L Est GFR (Non-Af Amer) 49 L 47 L BUN/Creatinine Ratio 4 L 5 L Glucose 98 99 POC Glucose Calculated Osmolality 285 288 Calcium 8.7 8.7 Total Bilirubin 0.3 AST 12 ALT 6 Alkaline Phosphatase 75 Serum Total Protein 6.2 Albumin 2.5 L Globulin 3.7 H Albumin/Globulin Ratio 0.7 L Specimen Rejected Accident 11/17/16 11/17/16 11/16/16 05:38 04:06 23:29 WBC 6.6 RBC 4.27 Hgb 12.1 Hct 37.4 MCV 87.6 MCH 28.3 MCHC 32.4 RDW 14.2 Plt Count 324 MPV 10.6 Immature Gran % 0.5 Seg Neutrophils % 68.6 Lymphocytes % 18.4 Monocytes % 6.9 Eosinophils % 5.0 Basophils % 0.6 Neutrophils # 4.5 Lymphocytes # 1.2 Monocytes # 0.5 Eosinophils # 0.3 Basophils # 0.0 Platelet Estimate Normal Immature Plt Fraction 2.9 Sodium Potassium Chloride Carbon Dioxide BUN Creatinine Est GFR ( Amer) Est GFR (Non-Af Amer) BUN/Creatinine Ratio Glucose POC Glucose 93 H 100 H Calculated Osmolality Calcium Total Bilirubin AST ALT Alkaline Phosphatase Serum Total Protein Albumin Globulin Albumin/Globulin Ratio Specimen Rejected 11/16/16 11:15 WBC RBC Hgb Hct MCV MCH MCHC RDW Plt Count MPV Immature Gran % Seg Neutrophils % Lymphocytes % Monocytes % Eosinophils % Basophils % Neutrophils # Lymphocytes # Monocytes # Eosinophils # Basophils # Platelet Estimate Immature Plt Fraction Sodium Potassium Chloride Carbon Dioxide BUN Creatinine Est GFR ( Amer) Est GFR (Non-Af Amer) BUN/Creatinine Ratio Glucose POC Glucose 88 Calculated Osmolality Calcium Total Bilirubin AST ALT Alkaline Phosphatase Serum Total Protein Albumin Globulin Albumin/Globulin Ratio Specimen Rejected
--- NOTE | 2016-11-17 10:41 | Event Note ---
Date of Encounter: 11/17/16 Time of Encounter: 10:40 - Cardiology Event Note Echo resulted--Impressions: LVEF 65%. Normal LV chamber size, wall thickness and function. Mild left ventricular diastolic dysfunction. Normal right ventricular structure and function. No evidence of pulmonary hypertension. No significant valvular dysfunction. EKG reviewed--SR, rate 82 without ischemic changes. If surgery is warranted in the future, she is low risk from a cardiac standpoint. Cardiology signing off. Reconsult PRN.
[2016-11-17] MEDS: Metoclopramide 10 MG/2 ML VIAL IVP SCH ×2 (10:55→12:53)
[2016-11-17 12:22] VITALS: BP 129/79
[2016-11-18] MEDS ORDERED: FLUoxetine 20 MG CAPSULE PO SCH (09:00)
[2016-11-18] MEDS ORDERED: Famotidine 20 MG TABLET PO SCH (09:00)
--- NOTE | 2016-11-22 08:33 | Electrocardiograph Report ---
[place] [id number] Test Date: 2016-11-17 Pat Name: [place] Department: [facility] Room: 3A23 Gender: F Material Assembler: : 1955 Requested By: Sacha Guevara Order Number: [id number] Reading MD: Gus Lamb DO Measurements Intervals [place] Rate: 82 P: 50 NV: 124 QRS: 29 QRSD: 78 T: 50 QT: 367 QTc: 405 Interpretive Statements SINUS RHYTHM LOW QRS VOLTAGE IN PRECORDIAL LEADS Electronically Signed On 11-21-2016 9:04:45 EDT by Gus Lamb DO
== END 2016-11-17 13:33 | disposition home or self-care (01) | DRG 393 ==
LOC: EMEROO 16:00 → 3ANU 16:00
PROVIDERS: ADMIT Surgery; ATTEND Surgery

== ENCOUNTER 2016-12-17 08:44 | Inpatient (IN) ==
[2016-12-17] MEDS ORDERED: Ringers Solution, Lactated 1,000 ML IVC SCH (09:00)
[2016-12-17] MEDS ORDERED: Lidocaine -MPF 1% 2 ML VIAL ID ONE (09:00)
[2016-12-17] MEDS ORDERED: CeFAZolin Pre 2,000 MG/100 ML 2,000 MG/100 ML BAG IVPB ONE (09:00)
--- NOTE | 2016-12-17 09:46 | History & Physical Report ---
Date of Encounter: 12/17/16 Time of Encounter: 09:45 24 Hour HP Update - Instructions Instructions: If the History and Physical is less than 30 days old and was completed prior to A.M. admission and or procedure and has NOT been updated on calendar day of procedure please complete this update prior to performing procedure. - Update Patient reports changes in Medical Condition: No Changes in examination, assessment, or condition: No Changes in Medication: No Preop tests/diagnostics Reviewed: Yes Surgery Remains Indicated: Yes Consent for Planned Operative Procedure(s) Verified: Yes - Pre-Operative Checklist Preoperative Checklist Indicated: Yes Prophylactic Antibiotic Ordered: Yes Home Medications Include Beta Enrike: No Beta Enrike Taken Today (Day of Surgery): No Beta Enrike Taken Yesterday (Day Prior to Surgery): No Is VTE Prophylaxis Indicated?: Yes - Attending Attestation Pt seen and examined. No acute changes in health or medications. okay to proceed with surgery
[2016-12-17] MEDS ORDERED: Metoclopramide 10 MG/2 ML VIAL IVP ONE (09:59)
[2016-12-17] MEDS ORDERED: *HR* Labetalol 20 MG/4 ML SYRINGE IVP PRN (09:59)
[2016-12-17] MEDS ORDERED: *HR* Promethazine 25 MG/ML VIAL IVP PRN (09:59)
[2016-12-17] MEDS ORDERED: Famotidine 20 MG/2 ML VIAL IVP ONE (09:59)
[2016-12-17] MEDS ORDERED: ACETAMINOPHEN IVPB ONE (10:02)
[2016-12-17] MEDS ORDERED: Gabapentin 300 MG CAPSULE PO STA (10:02)
[2016-12-17] MEDS ORDERED: Albuterol 2.5 MG/3 ML NEBULIZER IH ONE (10:02)
--- NOTE | 2016-12-17 10:08 | Anesthesia Evaluation PreOp ---
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,) Anesthesia History: No Prior Anesthetic Complications, Past Anesthesia (R- Breast Bx & Lymph nodes 2002 [R-limb precaution], EGD 2013, BTL) Alcohol Use: none Drug use: none Medications and Allergies ALPRAZolam [Xanax 0.5 MG Tablet] 0.5 mg PO BID PRN 08/12/16 [History] FLUoxetine HCl [Prozac] 40 mg PO QAM 08/12/16 [History] Ranitidine HCl [Zantac] 300 mg PO DAILY 08/12/16 [History] Cholecalciferol (Vitamin D3) [Vitamin D3] 10,000 unit PO DAILY 11/15/16 [History ] 3 Allergy/AdvReac Type Severity Reaction Status Date / Time No Known Allergies Allergy Verified 12/17/16 09:03 - Meds/Allergy Pre-op Review Medications Reviewed: Yes Allergies Reviewed: Yes Beta Blockers on Current Med List: No Anesthesia Results - Labs Laboratory Tests 06/26/15 08/12/16 11/16/16 08:27 18:59 01:03 WBC RBC Hgb Hct Plt Count PT 10.7 INR 1.0 APTT 27.1 Sodium Potassium Chloride Carbon Dioxide BUN Est GFR (Non-Af Amer) Glucose POC Glucose Est Mean Plasma Glucose 103 Hemoglobin A1c 5.2 11/17/16 11/17/16 12/13/16 05:38 09:14 16:20 WBC 6.5 RBC 4.68 Hgb 13.4 Hct 41.7 Plt Count 359 PT INR APTT Sodium Potassium Chloride Carbon Dioxide BUN Est GFR (Non-Af Amer) Glucose 99 POC Glucose 93 H Est Mean Plasma Glucose Hemoglobin A1c 12/13/16 16:20 WBC RBC Hgb Hct Plt Count PT INR APTT Sodium 140 Potassium 4.5 Chloride 107 Carbon Dioxide 26 BUN 11 Est GFR (Non-Af Amer) > 60 Glucose POC Glucose Est Mean Plasma Glucose Hemoglobin A1c Anesthesia Exam O2 Sat Height 1.6 m Height 1.6 m Weight 56.245 kg Weight 56.245 kg O2 Sat by Pulse Oximetry 97 Vital Signs Temp Pulse Resp BP Pulse Ox 97.7 F 92 18 103/65 97 12/17/16 09:12 12/17/16 09:12 12/17/16 09:12 12/17/16 09:12 12/17/16 09:12 Height: 5'3" Weight: 123# bmi = 22 NPO (# of Hours): mnoC - HEENT Pupil (Motor): Pupils equal, EOMI Mallampati: III (GLIDESCOPE STONGLY SUGGESTED) Teeth: Normal (fair condtion) Oral Opening: Greater than 3 - HAND ROUNDER LOC: Oriented HAND ROUNDER Motor: Normal RUE, Normal LUE, Normal RLE, Normal LLE, Normal Face HAND ROUNDER Sensory: Normal: RUE, LUE, RLE, LLE, Face - Cardiac Rhythm: Regular Murmur: None - Pulmonary Breath Sounds: bilateral Clear Respiratory Effort: Symmetrical Anesthesia Assess/Plan ASA Score: 3 (Smoker, Cholesterol, Raynauds, Anxiety/Depression) Anes Supervising Prov Stmt: Pt seen/evaluated, R&B Discussed questions answered and consent obtained. Mckay Ely MD
[2016-12-17] MEDS ORDERED: *HR* HYDROmorphone 2 MG/ML SYRINGE ONE (11:16)
[2016-12-17] MEDS ORDERED: Lidocaine -MPF 4% 5 ML AMPUL ONE (11:24)
[2016-12-17] MEDS ORDERED: *HR* Propofol 200 MG/20 ML VIAL IVP ONE (11:24)
[2016-12-17] MEDS ORDERED: Lidocaine -MPF 2% 2 ML VIAL ONE (11:24)
[2016-12-17] MEDS ORDERED: Ondansetron 4 MG/2 ML VIAL ONE (11:24)
[2016-12-17] MEDS ORDERED: *HR* Rocuronium Bromide 50 MG/5 ML VIAL ONE (11:24)
[2016-12-17] MEDS ORDERED: *HR* Succinylcholine 200 MG/10 ML VIAL IVP ONE (11:24)
[2016-12-17] MEDS ORDERED: Dexamethasone 4 MG/ML VIAL ONE (11:24)
[2016-12-17] MEDS ORDERED: *HR* FentaNYL (PF) 100 MCG/2 ML VIAL ONE (11:24)
[2016-12-17] MEDS ORDERED: Neostigmine Methylsulfate 3 MG/3 ML SYRINGE ONE (12:56)
[2016-12-17] MEDS ORDERED: *HR* HYDROmorphone (PF) 1 MG/ML SYRINGE ONE ×2 (14:49→15:16)
[2016-12-17] MEDS: *HR* HYDROmorphone (PF) 1 MG/ML SYRINGE IVP PRN ×4 (14:50→15:25)
--- NOTE | 2016-12-17 15:57 | Anesthesia Evaluation Post Op ---
Date of Encounter: 12/17/16 Time of Encounter: 15:38 - Vital Signs Vital Signs: Vital Signs/O2 Sat/Glucose, Most Current Temp Pulse Resp BP Pulse Ox 12/17/16 15:47 97.5 F L 89 16 124/73 100 12/17/16 15:37 97.6 F 92 16 123/77 100 12/17/16 15:27 85 16 126/71 100 12/17/16 15:17 87 16 126/76 100 12/17/16 15:07 97.7 F 86 16 123/65 100 12/17/16 14:57 81 16 118/62 96 12/17/16 14:47 78 16 119/62 100 12/17/16 14:37 97.3 F L 77 12 109/58 100 - Lungs Lungs: Clear Ascult./Percussion - Airway Airway: Non-obstructed - Cardiovascular Regular Rate - Mental Status Mental Status: Asleep without brisk response to light stimulation - Pain Pain Scale: 1 Pain Scale used: Freeman-Eriberto (Faces) (1) - Nausea Vomiting Nausea Vomiting: Not Present - Hydration Hydration: NPO, Has not voided - Discharge PostOp Status: Transfer Patient to floor Anes Supervising Prov Stmt: Pt seen/evaluated, VSS and pt has met criteria for discharge to home. - MD Solis
[2016-12-17] MEDS ORDERED: Albuterol 2.5 MG/3 ML NEBULIZER IH PRN (16:02)
[2016-12-17] MEDS ORDERED: ALPRAZolam 0.5 MG TABLET PO PRN (16:02)
[2016-12-17] MEDS ORDERED: Naloxone 0.4 MG/ML INJ IVP PRN (16:02)
[2016-12-17] MEDS ORDERED: *HR* HYDROmorphone 20 MG/20 ML PCA IVC PRN (16:02)
--- NOTE | 2016-12-17 17:03 | Operative Note ---
Date of procedure: 12/17/16 Pre-op diagnosis: abdominal pain Post-op diagnosis: other (adhesions, ischemic changes) Procedure: diagnostic laparosocpy converted to exploratory laparotomy, extensive lysis of adhesions, intraoperative doppler ultrasound Implants: none Complications: none Anesthesia: GETA Local Anesthetics: 0.5% Sensorcaine HCL SubQ (cc) Surgeon: Sacha Guevara Carpet Repairer: Michaela Kline Estimated blood loss (cc): 20 Specimen: omentum, ascitic fluid Condition: stable Disposition: PACU Procedure in Detail: Patient was brought into the operating room suite. place in supine position. Mechanical DVT prophylaxis was applied. patient underwent smooth induction of anesthesia. Preoperative antibiotics were given. The patient was prepped and draped in the usual fashion. A timeout was held identifying the correct patient , pathology, and procedure. Everyone was in agreement and we began our procedure. I started by making a 10mm supraumbilical incision and via open juanito technique did enter into the abdomen. I inserted the 10mm trocar and inserted the camera. Immediately upon entering I saw that the omentum was adhered to the abdominal wall along the RLQ and RUQ. I made 3 5mm incisions, at the RLQ, LLQ, and LUQ, inserted 5mm trocars for working ports and using tension- countertension and blunt and sharp dissection, and electrocautery I was able to take down those adhesions. I also noticed that there was a lot of ascites within the pelvis, LUQ, RUQ. I suctioned this out and sent a sample for cytology, culture and gram stain. I was able to identify the rectum and was able to get to the just distal to the splenic flexure. I was able to identify the cecum and able to run the bowel to the LOT. I was able to appreciate that the entire ileum had a pale white appearance with small <5mm holes within the serosa. This seemed to consistent with chronic ischemic changes. I then started back at the cecum and ran the bowel distally. I was only able to the the just proximal to the splenic flexure. Most of the adhesions were at the LUQ. Due to an inability to adequately evaluate the LUQ, I converted to an open procedure. Upon doing so I was able to take down those adhesions and palpate and visualize the remaining portion of the large bowel. I then took notice of the portion of bowel that had ischemic changes and performed an intraoperative doppler ultrasound. the blood supply at all examined portions (SMA, ICA, DAISY) had a good doppler signal. It should be stated that there were numerous interloop adhesions as well as an adheson to the mesentery. I lysed that adhesion. At this point the procedure was complete. I then closed the fascia using a #1 PDS in a running fashion. I gave 30 cc of local anesthesia and closed the skin with staplers. The incision was then dressed with xeroform, 4x4 guaze, and medipore tape. The patient tolerated the procedure well and was transported to PACU in stable condition.
[2016-12-17] MEDS: D5% in Lactated Ringers 1,000 ML IVC SCH (17:22)
[2016-12-17 17:40] LABS: Cancer Antigen 125 23 U/mL (0-35)
[2016-12-17 17:43] LABS: Carcinoembryonic Antigen < 0.5 ng/mL (0-5.0)
[2016-12-18 04:45] LABS: Basophils % 0.2 %; Hematocrit 42.2 % (35.3-44.9); Hemoglobin 13.9 g/dL (11.5-15.4); Immature Granulocytes % 0.2 % (0-4); Lymphocytes % 10.7 %; Mean Corpuscular HGB Conc 32.9 g/dL (31.6-35.5); Mean Corpuscular Hemoglobin 29.2 pg (28.0-33.3); Mean Corpuscular Volume 88.7 fL (83.0-100.0); Mean Platelet Volume 10.1 fL (9.4-12.4); Monocytes # 0.5 K/mcL (0.0-1.3); Monocytes % 5.2 %; Neutrophils # 7.6 K/mcL (1.6-8.9); Platelet Count 396 K/mcL (140-400); Red Blood Count 4.76 M/mcL (3.82-4.97); Red Cell Distribution Width 13.9 % (11.5-14.5); Segmented Neutrophils % 83.7 %
[2016-12-18 04:57] LABS: BUN/Creatinine Ratio 14 (6-26); Blood Urea Nitrogen 13 mg/dL (7-20); Calcium 8.9 mg/dL (8.6-10.8); Carbon Dioxide 23 mEq/L (19-29); Chloride 102 mEq/L (98-109); Glucose 133 mg/dL (70-99); Magnesium 1.5 mg/dL (1.6-2.6); Osmolality,Calculated 280 (280-300); Phosphorous 3.8 mg/dL (2.3-4.7); Potassium 4.7 mEq/L (3.5-4.5); Sodium 134 mEq/L (136-145); eGFR For African Americans > 60 (> 60); eGFR For Non-African Americans > 60 (> 60)
[2016-12-18] MEDS: *HR* Enoxaparin 40 MG/0.4 ML SYRINGE SQ SCH (04:58)
[2016-12-18] MEDS ORDERED: Ondansetron 4 MG/2 ML VIAL IVP PRN (06:18)
[2016-12-18] MEDS: FLUoxetine 20 MG CAPSULE PO SCH (08:09)
[2016-12-18] MEDS: Cholecalciferol (D-3) 1,000 UNIT TABLET PO SCH (08:09)
[2016-12-18] MEDS ORDERED: Famotidine 20 MG TABLET PO SCH (09:00)
[2016-12-18] MEDS ORDERED: *HR* Promethazine 25 MG/ML VIAL IVP PRN (09:51)
[2016-12-18] MEDS: *HR* Morphine 30 MG/ 30 ML PCA IVC PRN (11:21)
[2016-12-18] MEDS: D5% in Lactated Ringers 1,000 ML IVC SCH ×3 (11:25→20:41)
--- NOTE | 2016-12-18 11:41 | General Surgery Progress Note ---
Date of Encounter: 12/18/16 Time of Encounter: 08:30 - Assessment and Plan (1) Nausea & vomiting Current Visit: No Status: Acute s/p diagnostic laparoscopic converted to laparotomy. Patient was given a clear diet for dinner and patient did not tolerate well. Emesis continued through the night. Plan: - NG tube placement - Zofran and Phenergan - added protonics for burning sensation possibly related to GERD - switched RIVETER PORTABLE MACHINE pump from dilaudid to morphine. - continue prn dressing changes Qualifiers: Vomiting type: unspecified Vomiting Intractability: unspecified Qualified Code(s): R11.2 - Nausea with vomiting, unspecified (2) Pneumatosis intestinalis Current Visit: No Status: Acute history of pneumonitis intestinalis s/p diagnostic laparosocpy converted to exploratory laparotomy, extensive lysis of adhesions, intraoperative doppler ultrasound. Incisions healing well. See plan above. (3) DVT prophylaxis Current Visit: Yes Status: Acute Lovenox (4) Anxiety Current Visit: Yes Status: Acute Hold home meds while NG placed. Subjective Narrative: Patient is a 61-year-old female with a past medical history of pneumonitis intestinalis s/p diagnostic laparosocpy converted to exploratory laparotomy, extensive lysis of adhesions, intraoperative doppler ultrasound. Overnight, patient had multiple episodes of emesis after being on clear liquids for dinner. Overnight patient refused NG tube. This morning when visitation patient was still having multiple episodes of emesis within the last couple of hours. Patient changed her mind about having an NG tube and is willing to have one placed. Patient is complaining this morning of burning sensation in her epigastric region and nausea with the Dilaudid. Objective Vital Signs - Last 8 Hours Temp Pulse Resp BP Pulse Ox 12/18/16 08:45 94 12/18/16 06:55 98.4 F 107 16 123/83 94 12/18/16 03:48 97.5 F L 108 14 129/84 95 Intake and Output 12/17/16 12/18/16 12/18/16 23:59 07:59 15:59 Intake Total 120 / 120 120 / 120 0 / 0 Output Total 650 / 650 500 / 500 950 / 950 Balance -530 / -530 -380 / -380 -950 / -950 Intake: Oral 120 / 120 120 / 120 0 / 0 Output: Urine 650 / 650 Emesis 500 / 500 Gastric Tube Lavage Amount 950 / 950 Left Nare 950 / 950 Other: Meal NPO Percent of Meal Consumed 0% # Voids 1 Weight 56.019 kg Patient Weight 12/18/16 23:59 Weight 56.019 kg - Additional Exam Constitutional: Alert, in no acute distress, well nourished, well developed. Head: Normocephalic, atraumatic, normal contour and symmetric, no masses, lesions or scars Heart: Normal, regular rate and rhythm, no murmurs Lungs: Clear to auscultation, no wheezes, rales, or rhonchi Abdomen: vertical midline surgical incision with stables and old sanguinous drainage on dression, laproscopic incisions, incisions well approximated, healing well, mild distension, diffuse tenderness, Soft, and no masses palpable , bowel sounds present and normal, no guarding or rigidity. Extremities: No clubbing, cyanosis, or edema, radial pulse +2/4, capillary refill <2sec. Skin: Skin warm and dry, no lesions, no rashes, no jaundice Neurologic: Cranial nerves II through XII grossly intact, no focal deficits, strength within normal limits in all extremities Psych: Cooperative with exam, good eye contact, cognitive function intact, judgment good insight good, speech clear, thought process logical, and goal directed - Labs 12/18/16 04:03 12/18/16 04:03 Diabetes panel 12/18/16 Range/Units 04:03 Sodium 134 L (136-145) mEq/L Potassium 4.7 H (3.5-4.5) mEq/L Chloride 102 (98-109) mEq/L Carbon Dioxide 23 (19-29) mEq/L BUN 13 (7-20) mg/dL Creatinine 0.94 (0.57-1.11) mg/dL Glucose 133 H (70-99) mg/dL Calcium 8.9 (8.6-10.8) mg/dL Calcium panel 12/18/16 Range/Units 04:03 Calcium 8.9 (8.6-10.8) mg/dL Phosphorus 3.8 (2.3-4.7) mg/dL Pituitary panel 12/18/16 Range/Units 04:03 Sodium 134 L (136-145) mEq/L Potassium 4.7 H (3.5-4.5) mEq/L Chloride 102 (98-109) mEq/L Carbon Dioxide 23 (19-29) mEq/L BUN 13 (7-20) mg/dL Creatinine 0.94 (0.57-1.11) mg/dL Glucose 133 H (70-99) mg/dL Calcium 8.9 (8.6-10.8) mg/dL Adrenal panel 12/18/16 Range/Units 04:03 Sodium 134 L (136-145) mEq/L Potassium 4.7 H (3.5-4.5) mEq/L Chloride 102 (98-109) mEq/L Carbon Dioxide 23 (19-29) mEq/L BUN 13 (7-20) mg/dL Creatinine 0.94 (0.57-1.11) mg/dL Glucose 133 H (70-99) mg/dL Calcium 8.9 (8.6-10.8) mg/dL - VTE Documentation of Mechanical Device: Intermittent pneumatic compression device Consult Discharge Plan - Plan Referrals: Sacha Guevara MD [Non-Partnered Physician] - 12/27/16 1:30 pm
[2016-12-18] MEDS ORDERED: D5% in 0.45% NACL 1,000 ML IVC SCH (15:00)
[2016-12-18] MEDS: Pantoprazole 40 MG VIAL IVP SCH (15:30)
[2016-12-18] MEDS: Magnesium Sulfate 2 GM in D5% in Water 100 ML IVPB SCH ×2 (18:31→19:35)
[2016-12-19] MEDS: D5% in Lactated Ringers 1,000 ML IVC SCH ×2 (04:24→19:57)
[2016-12-19] MEDS: *HR* Enoxaparin 40 MG/0.4 ML SYRINGE SQ SCH (05:36)
[2016-12-19] MEDS: Cholecalciferol (D-3) 1,000 UNIT TABLET PO SCH (07:48)
[2016-12-19] MEDS: Pantoprazole 40 MG VIAL IVP SCH (07:48)
[2016-12-19] MEDS: FLUoxetine 20 MG CAPSULE PO SCH (07:48)
[2016-12-19 08:24] LABS: Basophils % 0.1 %; Eosinophils % 0.1 %; Hematocrit 35.3 % (35.3-44.9); Immature Granulocytes % 0.4 % (0-4); Mean Corpuscular HGB Conc 33.1 g/dL (31.6-35.5); Mean Corpuscular Hemoglobin 29.1 pg (28.0-33.3); Mean Corpuscular Volume 87.8 fL (83.0-100.0); Mean Platelet Volume 10.1 fL (9.4-12.4); Monocytes # 0.7 K/mcL (0.0-1.3); Monocytes % 6.3 %; Neutrophils # 8.6 K/mcL (1.6-8.9); Platelet Count 311 K/mcL (140-400); Red Blood Count 4.02 M/mcL (3.82-4.97); Red Cell Distribution Width 13.5 % (11.5-14.5); Segmented Neutrophils % 83.1 %
[2016-12-19 08:26] LABS: Hemoglobin 11.7 g/dL (11.5-15.4)
[2016-12-19 08:36] LABS: Magnesium 2.1 mg/dL (1.6-2.6); Phosphorous 2.1 mg/dL (2.3-4.7)
[2016-12-19 08:37] LABS: BUN/Creatinine Ratio 16 (6-26); Blood Urea Nitrogen 14 mg/dL (7-20); Calcium 8.8 mg/dL (8.6-10.8); Carbon Dioxide 34 mEq/L (19-29); Chloride 98 mEq/L (98-109); Glucose 119 mg/dL (70-99); Osmolality,Calculated 286 (280-300); Potassium 3.5 mEq/L (3.5-4.5); Sodium 137 mEq/L (136-145); eGFR For African Americans > 60 (> 60); eGFR For Non-African Americans > 60 (> 60)
--- NOTE | 2016-12-19 10:06 | General Surgery Progress Note ---
Date of Encounter: 12/19/16 Time of Encounter: 08:50 - Assessment and Plan (1) Nausea & vomiting Current Visit: No Status: Acute s/p diagnostic laparoscopic converted to laparotomy. Patient accepted NG tube and had NG output= 2100ml yesterday. Incisions are healing well without signs of infection. 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 Incisions healing well. See plan above. (3) DVT prophylaxis Current Visit: Yes Status: Acute Lovenox SQ (4) Anxiety Current Visit: Yes Status: Acute Hold home meds while NG placed. Subjective Narrative: Patient is a 61-year-old female with a past medical history of pneumonitis intestinalis s/p diagnostic laparosocpy converted to exploratory laparotomy, extensive lysis of adhesions, intraoperative doppler ultrasound. Patient feels a little bit better today. Her abdomen is sore. Denies passing gas or bowel movement. Objective Vital Signs - Last 8 Hours Temp Pulse Resp BP Pulse Ox 12/19/16 07:51 95 12/19/16 06:30 98.0 F 106 14 118/73 95 12/19/16 04:18 98.5 F 104 15 118/74 94 Intake and Output 12/18/16 12/19/16 12/19/16 23:59 07:59 15:59 Intake Total 1083 / 1083 0 / 0 0 / 0 Output Total 1300 / 1300 450 / 450 Balance -217 / -217 -450 / -450 0 / 0 Intake: IV Fluids 1083 / 1083 D5% & Lact. Ringers 1000 Ml Bag 875 / 875 1,000 ML @ 100 mls/hr IVC . Q10H [facility] Rx#:[id number] Magnesium Sulfate 2 GM In 208 / 208 Dextrose 5% 100 ML @ 96.296 mls /hr IVPB Q1H [facility] Rx#:[id number] Oral 0 / 0 0 / 0 0 / 0 Output: Urine 200 / 200 0 / 0 Gastric Drainage 1100 / 1100 450 / 450 Other: Meal NPO Npo Percent of Meal Consumed 0% 0% Blood Glucose* 128 127 - Additional Exam Constitutional: Alert, in no acute distress, well nourished, well developed. Head: NG tube in place draining dark brown Normocephalic, atraumatic, normal contour and symmetric, no masses, lesions or scars Heart: Normal, regular rate and rhythm, no murmurs Lungs: Clear to auscultation, no wheezes, rales, or rhonchi Abdomen: vertical midline surgical incision with stables and small amount sanguinous drainage on dressing laproscopic incisions, incisions well approximated, healing well, mild distension, diffuse tenderness, Soft, and no masses palpable, bowel sounds present and normal, no guarding or rigidity. Extremities: No clubbing, cyanosis, or edema, radial pulse +2/4, capillary refill <2sec. Skin: Skin warm and dry, no lesions, no rashes, no jaundice Neurologic: Cranial nerves II through XII grossly intact, no focal deficits, strength within normal limits in all extremities Psych: Cooperative with exam, good eye contact, cognitive function intact, judgment good insight good, speech clear, thought process logical, and goal directed - Labs 12/19/16 07:55 12/19/16 07:55 Diabetes panel 12/19/16 Range/Units 07:55 Sodium 137 (136-145) mEq/L Potassium 3.5 D (3.5-4.5) mEq/L Chloride 98 (98-109) mEq/L Carbon Dioxide 34 H (19-29) mEq/L BUN 14 (7-20) mg/dL Creatinine 0.87 (0.57-1.11) mg/dL Glucose 119 H (70-99) mg/dL Calcium 8.8 (8.6-10.8) mg/dL Calcium panel 12/19/16 12/19/16 Range/Units 07:55 07:55 Calcium 8.8 (8.6-10.8) mg/dL Phosphorus 2.1 L (2.3-4.7) mg/dL Pituitary panel 12/19/16 Range/Units 07:55 Sodium 137 (136-145) mEq/L Potassium 3.5 D (3.5-4.5) mEq/L Chloride 98 (98-109) mEq/L Carbon Dioxide 34 H (19-29) mEq/L BUN 14 (7-20) mg/dL Creatinine 0.87 (0.57-1.11) mg/dL Glucose 119 H (70-99) mg/dL Calcium 8.8 (8.6-10.8) mg/dL Adrenal panel 12/19/16 Range/Units 07:55 Sodium 137 (136-145) mEq/L Potassium 3.5 D (3.5-4.5) mEq/L Chloride 98 (98-109) mEq/L Carbon Dioxide 34 H (19-29) mEq/L BUN 14 (7-20) mg/dL Creatinine 0.87 (0.57-1.11) mg/dL Glucose 119 H (70-99) mg/dL Calcium 8.8 (8.6-10.8) mg/dL - VTE Documentation of Mechanical Device: Graduated compression elastic hosiery Consult Discharge Plan - Plan Referrals: Sacha Guevara MD [Non-Partnered Physician] - 12/27/16 1:30 pm
[2016-12-19] MEDS ORDERED: Chloraseptic Spray 177 ML BOTTLE MM PRN (10:07)
[2016-12-19] MEDS ORDERED: 0.9 % Sodium Chloride 1,000 ML IVC ONE ×2 (12:16→12:34)
[2016-12-19] MEDS: *HR* Morphine 30 MG/ 30 ML PCA IVC PRN (13:55)
[2016-12-20 04:40] LABS: Basophils % 0.1 %; Eosinophils % 0.4 %; Immature Granulocytes % 0.3 % (0-4); Lymphocytes # 1.2 K/mcL (0.6-4.6); Lymphocytes % 12.4 %; Mean Corpuscular HGB Conc 32.7 g/dL (31.6-35.5); Mean Corpuscular Hemoglobin 28.7 pg (28.0-33.3); Mean Corpuscular Volume 87.7 fL (83.0-100.0); Mean Platelet Volume 9.7 fL (9.4-12.4); Monocytes # 0.6 K/mcL (0.0-1.3); Monocytes % 6.2 %; Neutrophils # 7.5 K/mcL (1.6-8.9); Platelet Count 252 K/mcL (140-400); Red Blood Count 3.42 M/mcL (3.82-4.97); Red Cell Distribution Width 13.4 % (11.5-14.5); Segmented Neutrophils % 80.6 %
[2016-12-20 04:50] LABS: Hemoglobin 9.8 g/dL (11.5-15.4)
[2016-12-20 04:57] LABS: BUN/Creatinine Ratio 16 (6-26); Blood Urea Nitrogen 12 mg/dL (7-20); Calcium 8.3 mg/dL (8.6-10.8); Carbon Dioxide 29 mEq/L (19-29); Chloride 102 mEq/L (98-109); Glucose 107 mg/dL (70-99); Magnesium 1.7 mg/dL (1.6-2.6); Osmolality,Calculated 284 (280-300); Phosphorous 2.1 mg/dL (2.3-4.7); Potassium 3.1 mEq/L (3.5-4.5); Sodium 137 mEq/L (136-145); eGFR For African Americans > 60 (> 60); eGFR For Non-African Americans > 60 (> 60)
[2016-12-20] MEDS: D5% in Lactated Ringers 1,000 ML IVC SCH ×2 (05:44→07:28)
[2016-12-20] MEDS: *HR* Enoxaparin 40 MG/0.4 ML SYRINGE SQ SCH (05:45)
[2016-12-20] MEDS: FLUoxetine 20 MG CAPSULE PO SCH (09:12)
[2016-12-20] MEDS: Cholecalciferol (D-3) 1,000 UNIT TABLET PO SCH (09:12)
[2016-12-20] MEDS: Pantoprazole 40 MG VIAL IVP SCH (09:12)
--- NOTE | 2016-12-20 10:13 | General Surgery Progress Note ---
Date of Encounter: 12/20/16 Time of Encounter: 10:08 - Assessment and Plan (1) Pneumatosis intestinalis Current Visit: Yes Status: Acute 61F POD #3 s/p diagnostic laparoscopy converted to ex lap, pedrito, irrigation of abdominal ascites, omentecotmy 2/2 pneumotosis intestinalis, pneumoperitoneum and abdominal pain of unknown etiology, now with an ileus - NPO - NG tube - bolus 2L over 2 hours - strict I/O; begin replacement fluids of NG output consistently over 1L - cont PLANT PACKER for pain contorl - encourage ambulation, OOBTC -IS usage - dvt, GI prophylaxis - await return of bowel function (2) Pneumoperitoneum of unknown etiology Current Visit: Yes Status: Acute see above (3) Abdominal pain Current Visit: Yes Status: Acute see above Qualifiers: Abdominal location: generalized Qualified Code(s): R10.84 - Generalized abdominal pain Subjective Patient reports: no new complaints, still having pain, no flatus, no bowel movement Objective Vital Signs - Last 8 Hours Temp Pulse Resp BP Pulse Ox 12/20/16 06:00 97.7 F 86 14 104/67 94 12/20/16 03:00 97.9 F 87 16 109/73 96 Intake and Output 12/19/16 12/20/16 12/20/16 23:59 07:59 15:59 Intake Total 1120 / 1120 1000 / 1000 Output Total 850 / 850 600 / 600 200 / 200 Balance 270 / 270 400 / 400 -200 / -200 Intake: IV Fluids 1000 / 1000 1000 / 1000 D5% & Lact. Ringers 1000 Ml Bag 1000 / 1000 1000 / 1000 1,000 ML @ 100 mls/hr IVC . Q10H [facility] Rx#:[id number] Oral 120 / 120 0 / 0 Output: Urine 450 / 450 100 / 100 200 / 200 Gastric Drainage 400 / 400 500 / 500 Other: Meal NPO npo Percent of Meal Consumed 0% Blood Glucose* 104 102 - General physical appearance well developed, well nourished, no distress - Respiratory normal expansion, normal respiratory effort - Cardiovascular Cardiovascular exam: Present: RRR - Abdomen Abdomen: Present: soft, tender (along incision) - Incision Incision: Present: clean and dry, intact - Neurologic CN 2-12 grossly intact - Labs 12/20/16 04:27 12/20/16 04:27 Diabetes panel 12/20/16 Range/Units 04:27 Sodium 137 (136-145) mEq/L Potassium 3.1 L (3.5-4.5) mEq/L Chloride 102 (98-109) mEq/L Carbon Dioxide 29 (19-29) mEq/L BUN 12 (7-20) mg/dL Creatinine 0.73 (0.57-1.11) mg/dL Glucose 107 H (70-99) mg/dL Calcium 8.3 L (8.6-10.8) mg/dL Calcium panel 12/20/16 Range/Units 04:27 Calcium 8.3 L (8.6-10.8) mg/dL Phosphorus 2.1 L (2.3-4.7) mg/dL Pituitary panel 12/20/16 Range/Units 04:27 Sodium 137 (136-145) mEq/L Potassium 3.1 L (3.5-4.5) mEq/L Chloride 102 (98-109) mEq/L Carbon Dioxide 29 (19-29) mEq/L BUN 12 (7-20) mg/dL Creatinine 0.73 (0.57-1.11) mg/dL Glucose 107 H (70-99) mg/dL Calcium 8.3 L (8.6-10.8) mg/dL Adrenal panel 12/20/16 Range/Units 04:27 Sodium 137 (136-145) mEq/L Potassium 3.1 L (3.5-4.5) mEq/L Chloride 102 (98-109) mEq/L Carbon Dioxide 29 (19-29) mEq/L BUN 12 (7-20) mg/dL Creatinine 0.73 (0.57-1.11) mg/dL Glucose 107 H (70-99) mg/dL Calcium 8.3 L (8.6-10.8) mg/dL - VTE Documentation of Mechanical Device: Intermittent pneumatic compression device Consult Discharge Plan - Plan Referrals: Sacha Guevara MD [Non-Partnered Physician] - 12/27/16 1:30 pm
[2016-12-20] MEDS ORDERED: Potassium Phosphate 44 MEQ in 0.9 % Sodium Chloride 250 ML IVPB ONE (10:29)
[2016-12-20] MEDS ORDERED: Magnesium Sulfate 2 GM in D5% in Water 100 ML IVPB ONE (10:30)
[2016-12-20] MEDS ORDERED: Potassium Chloride 40 MEQ, Lidocaine 1% 2 ML in D5% in Water 500 ML IVPB ONE (11:59)
[2016-12-20] MEDS ORDERED: 0.9 % Sodium Chloride 1,000 ML IVC ONE (17:11)
[2016-12-20] MEDS: D5% in 0.45% NACL w KCl 20 MEQ/1,000 ML MLS IVC SCH (17:13)
[2016-12-21] MEDS: D5% in 0.45% NACL w KCl 20 MEQ/1,000 ML MLS IVC SCH ×3 (04:23→18:34)
[2016-12-21] MEDS: *HR* Enoxaparin 40 MG/0.4 ML SYRINGE SQ SCH (05:25)
[2016-12-21] MEDS ORDERED: D10% in Water 500 ML IVC PRN (09:34)
[2016-12-21] MEDS: FLUoxetine 20 MG CAPSULE PO SCH (09:35)
[2016-12-21] MEDS: Cholecalciferol (D-3) 1,000 UNIT TABLET PO SCH (09:36)
[2016-12-21] MEDS: Pantoprazole 40 MG VIAL IVP SCH (09:54)
[2016-12-21 10:28] LABS: BUN/Creatinine Ratio 15 (6-26); Blood Urea Nitrogen 10 mg/dL (7-20); Calcium 8.4 mg/dL (8.6-10.8); Carbon Dioxide 22 mEq/L (19-29); Chloride 103 mEq/L (98-109); Glucose 107 mg/dL (70-99); Magnesium 2.1 mg/dL (1.6-2.6); Osmolality,Calculated 276 (280-300); Phosphorous 2.2 mg/dL (2.3-4.7); Sodium 133 mEq/L (136-145); Triglycerides 169 mg/dL (< 150); eGFR For African Americans > 60 (> 60); eGFR For Non-African Americans > 60 (> 60)
[2016-12-21 10:32] LABS: Potassium 4.3 mEq/L (3.5-4.5)
--- NOTE | 2016-12-21 12:40 | General Surgery Progress Note ---
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 - encourage ambulation, OOBTC -IS usage - dvt, GI prophylaxis - await return of bowel function (2) Pneumoperitoneum of unknown etiology Current Visit: Yes Status: Acute see above (3) Abdominal pain Current Visit: Yes Status: Acute see above Qualifiers: Abdominal location: generalized Qualified Code(s): R10.84 - Generalized abdominal pain Subjective Patient reports: no new complaints Objective Vital Signs - Last 8 Hours Temp Pulse Resp BP Pulse Ox 12/21/16 11:04 97.6 F 83 16 130/73 95 12/21/16 07:31 97.8 F 65 18 152/78 96 Intake and Output 12/20/16 12/21/16 12/21/16 23:59 07:59 15:59 Intake Total 0 / 0 1020 / 1020 0 / 0 Output Total 600 / 600 950 / 950 400 / 400 Balance -600 / -600 70 / 70 -400 / -400 Intake: IV Fluids 900 / 900 KCl 20mEq IN D5%-0.45 NACL 20 900 / 900 meq In 1,000 ml @ 100 mls/hr IVC .Q10H [facility] Rx#:[id number] Oral 0 / 0 120 / 120 0 / 0 Output: Urine 300 / 300 600 / 600 200 / 200 Gastric Drainage 300 / 300 350 / 350 200 / 200 Other: Meal NPO NPO Weight 55.61 kg Blood Glucose* 98 97 65 Patient Weight 12/21/16 23:59 Weight 55.61 kg - General physical appearance well developed, well nourished - Eyes normal ocular movement - Respiratory normal expansion, normal respiratory effort - Cardiovascular Cardiovascular exam: Present: RRR - Abdomen Abdomen: Present: soft, tender (non peritoneal; appropriately tender) - Neurologic CN 2-12 grossly intact - Psychiatric oriented to time, oriented to person, oriented to place - Labs 12/20/16 04:27 12/21/16 10:02 Diabetes panel 12/21/16 Range/Units 10:02 Sodium 133 L (136-145) mEq/L Potassium 4.3 D (3.5-4.5) mEq/L Chloride 103 (98-109) mEq/L Carbon Dioxide 22 (19-29) mEq/L BUN 10 (7-20) mg/dL Creatinine 0.67 (0.57-1.11) mg/dL Glucose 107 H (70-99) mg/dL Calcium 8.4 L (8.6-10.8) mg/dL Triglycerides 169 H (< 150) mg/dL Calcium panel 12/21/16 Range/Units 10:02 Calcium 8.4 L (8.6-10.8) mg/dL Phosphorus 2.2 L (2.3-4.7) mg/dL Pituitary panel 12/21/16 Range/Units 10:02 Sodium 133 L (136-145) mEq/L Potassium 4.3 D (3.5-4.5) mEq/L Chloride 103 (98-109) mEq/L Carbon Dioxide 22 (19-29) mEq/L BUN 10 (7-20) mg/dL Creatinine 0.67 (0.57-1.11) mg/dL Glucose 107 H (70-99) mg/dL Calcium 8.4 L (8.6-10.8) mg/dL Adrenal panel 12/21/16 Range/Units 10:02 Sodium 133 L (136-145) mEq/L Potassium 4.3 D (3.5-4.5) mEq/L Chloride 103 (98-109) mEq/L Carbon Dioxide 22 (19-29) mEq/L BUN 10 (7-20) mg/dL Creatinine 0.67 (0.57-1.11) mg/dL Glucose 107 H (70-99) mg/dL Calcium 8.4 L (8.6-10.8) mg/dL - VTE Documentation of Mechanical Device: Intermittent pneumatic compression device Consult Discharge Plan - Plan Referrals: Sacha Guevara MD [Non-Partnered Physician] - 12/27/16 1:30 pm
[2016-12-21] MEDS ORDERED: Lidocaine -MPF 1% 5 ML AMPUL INFILT ONE (14:13)
[2016-12-21] MEDS ORDERED: Lidocaine -MPF 1% 2 ML VIAL INFILT ONE (14:45)
[2016-12-21] MEDS ORDERED: Clinimix E 5%-15% SOLUTION 2,000 ML with MVI, adult with vitamin K 10 ML IVC SCH (17:00)
[2016-12-21] MEDS: *HR* Morphine 30 MG/ 30 ML PCA IVC PRN (23:33)
[2016-12-22] MEDS: D5% in 0.45% NACL w KCl 20 MEQ/1,000 ML MLS IVC SCH (04:50)
[2016-12-22] MEDS: *HR* Enoxaparin 40 MG/0.4 ML SYRINGE SQ SCH (04:51)
[2016-12-22 06:11] LABS: BUN/Creatinine Ratio 14 (6-26); Blood Urea Nitrogen 8 mg/dL (7-20); Carbon Dioxide 25 mEq/L (19-29); Chloride 100 mEq/L (98-109); Glucose 106 mg/dL (70-99); Magnesium 1.5 mg/dL (1.6-2.6); Osmolality,Calculated 267 (280-300); Phosphorous 2.3 mg/dL (2.3-4.7); Potassium 3.9 mEq/L (3.5-4.5); Sodium 129 mEq/L (136-145); eGFR For African Americans > 60 (> 60); eGFR For Non-African Americans > 60 (> 60)
[2016-12-22] MEDS ORDERED: Magnesium Sulfate 2 GM in D5% in Water 100 ML IVPB ONE (07:17)
[2016-12-22] MEDS ORDERED: Sodium Phosphate 30 MMOL in D5% in Water 100 ML IVPB ONE (07:17)
--- NOTE | 2016-12-22 07:19 | General Surgery Progress Note ---
Date of Encounter: 12/22/16 Time of Encounter: 07:18 - Assessment and Plan (1) Pneumatosis intestinalis Current Visit: Yes Status: Acute 61F POD #4 s/p diagnostic laparoscopy converted to ex lap, pedrito, irrigation of abdominal ascites, omentecotmy 2/2 pneumotosis intestinalis, pneumoperitoneum and abdominal pain of unknown etiology, now with an ileus - NPO - NG tube; possibel clamp trial due to decrease in output - TPN - strict I/O; begin replacement fluids of NG output consistently over 1L - cont PROC TECH for pain control - encourage ambulation, OOBTC -IS usage - dvt, GI prophylaxis - await return of bowel function (2) Pneumoperitoneum of unknown etiology Current Visit: Yes Status: Acute see above (3) Abdominal pain Current Visit: Yes Status: Acute see above Qualifiers: Abdominal location: generalized Qualified Code(s): R10.84 - Generalized abdominal pain Subjective Patient reports: no new complaints Objective Vital Signs - Last 8 Hours Temp Pulse Resp BP Pulse Ox 12/22/16 06:53 98.3 F 101 17 144/82 98 12/22/16 03:34 99.2 F 108 16 144/87 95 12/21/16 23:19 99.6 F 101 15 164/92 96 Intake and Output 12/21/16 12/21/16 12/22/16 15:59 23:59 07:59 Intake Total 1000 / 1000 0 / 0 1250 / 1250 Output Total 400 / 400 350 / 350 500 / 500 Balance 600 / 600 -350 / -350 750 / 750 Intake: IV Fluids 1000 / 1000 1250 / 1250 KCl 20mEq IN D5%-0.45 NACL 20 1000 / 1000 1000 / 1000 meq In 1,000 ml @ 100 mls/hr IVC .Q10H [facility] Rx#:[id number] Intralipid 20% 250 ML @ 21 mls/ 250 / 250 hr IVPB DAILY@1700 [facility] Rx#: [id number] Oral 0 / 0 0 / 0 0 / 0 Output: Urine 200 / 200 350 / 350 500 / 500 Gastric Drainage 200 / 200 Other: Meal npo NPO Percent of Meal Consumed 0% Weight 55.4 kg Blood Glucose* 65 119 119 Patient Weight 12/22/16 23:59 Weight 55.4 kg - General physical appearance well developed - Respiratory normal expansion, normal respiratory effort - Cardiovascular Cardiovascular exam: Present: RRR - Abdomen Abdomen: Present: soft, tender (appropriately tender along incision; non peritoneal; abdomen at normal size per patient) - Incision Incision: Present: clean and dry, intact - Neurologic CN 2-12 grossly intact - Labs 12/20/16 04:27 12/22/16 05:40 Diabetes panel 12/21/16 12/22/16 Range/Units 10:02 05:40 Sodium 133 L 129 L (136-145) mEq/L Potassium 4.3 D 3.9 (3.5-4.5) mEq/L Chloride 103 100 (98-109) mEq/L Carbon Dioxide 22 25 (19-29) mEq/L BUN 10 8 (7-20) mg/dL Creatinine 0.67 0.57 (0.57-1.11) mg/dL Glucose 107 H 106 H (70-99) mg/dL Calcium 8.4 L 8.0 L (8.6-10.8) mg/dL Triglycerides 169 H (< 150) mg/dL Calcium panel 12/21/16 12/22/16 Range/Units 10:02 05:40 Calcium 8.4 L 8.0 L (8.6-10.8) mg/dL Phosphorus 2.2 L 2.3 (2.3-4.7) mg/dL Pituitary panel 12/21/16 12/22/16 Range/Units 10:02 05:40 Sodium 133 L 129 L (136-145) mEq/L Potassium 4.3 D 3.9 (3.5-4.5) mEq/L Chloride 103 100 (98-109) mEq/L Carbon Dioxide 22 25 (19-29) mEq/L BUN 10 8 (7-20) mg/dL Creatinine 0.67 0.57 (0.57-1.11) mg/dL Glucose 107 H 106 H (70-99) mg/dL Calcium 8.4 L 8.0 L (8.6-10.8) mg/dL Adrenal panel 12/21/16 12/22/16 Range/Units 10:02 05:40 Sodium 133 L 129 L (136-145) mEq/L Potassium 4.3 D 3.9 (3.5-4.5) mEq/L Chloride 103 100 (98-109) mEq/L Carbon Dioxide 22 25 (19-29) mEq/L BUN 10 8 (7-20) mg/dL Creatinine 0.67 0.57 (0.57-1.11) mg/dL Glucose 107 H 106 H (70-99) mg/dL Calcium 8.4 L 8.0 L (8.6-10.8) mg/dL - VTE Documentation of Mechanical Device: Intermittent pneumatic compression device Consult Discharge Plan - Plan Referrals: Sacha Guevara MD [Non-Partnered Physician] - 12/27/16 1:30 pm
[2016-12-22] MEDS: Pantoprazole 40 MG VIAL IVP SCH (09:37)
[2016-12-22] MEDS: 0.9 % Sodium Chloride 1,000 ML IVC SCH (09:38)
[2016-12-22] MEDS: Cholecalciferol (D-3) 1,000 UNIT TABLET PO SCH (11:46)
[2016-12-22] MEDS: FLUoxetine 20 MG CAPSULE PO SCH (11:46)
[2016-12-22] MEDS ORDERED: Clinimix E 5%-15% SOLUTION 2,000 ML with MVI, adult with vitamin K 10 ML IVC SCH (17:00)
[2016-12-23 04:54] LABS: BUN/Creatinine Ratio 22 (6-26); Blood Urea Nitrogen 12 mg/dL (7-20); Calcium 8.1 mg/dL (8.6-10.8); Carbon Dioxide 22 mEq/L (19-29); Chloride 100 mEq/L (98-109); Glucose 92 mg/dL (70-99); Magnesium 1.8 mg/dL (1.6-2.6); Osmolality,Calculated 269 (280-300); Phosphorous 2.8 mg/dL (2.3-4.7); Potassium 3.6 mEq/L (3.5-4.5); Sodium 130 mEq/L (136-145); eGFR For African Americans > 60 (> 60); eGFR For Non-African Americans > 60 (> 60)
[2016-12-23] MEDS: *HR* Enoxaparin 40 MG/0.4 ML SYRINGE SQ SCH (05:58)
[2016-12-23] MEDS: 0.9 % Sodium Chloride 1,000 ML IVC SCH (05:58)
[2016-12-23] MEDS: Pantoprazole 40 MG VIAL IVP SCH (08:11)
[2016-12-23] MEDS: Cholecalciferol (D-3) 1,000 UNIT TABLET PO SCH (10:18)
[2016-12-23] MEDS: FLUoxetine 20 MG CAPSULE PO SCH (10:18)
--- NOTE | 2016-12-23 10:34 | General Surgery Progress Note ---
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 - encourage ambulation, OOBTC -IS usage - dvt, GI prophylaxis - sodium, phosph repleted in TPN (2) Pneumoperitoneum of unknown etiology Current Visit: Yes Status: Acute see above (3) Abdominal pain Current Visit: Yes Status: Acute see above Qualifiers: Abdominal location: generalized Qualified Code(s): R10.84 - Generalized abdominal pain Subjective Patient reports: no new complaints, feels better, still having pain, pain is less, flatus Objective Vital Signs - Last 8 Hours Temp Pulse Resp BP Pulse Ox 12/23/16 06:46 97.3 F L 87 14 142/81 96 12/23/16 03:16 98.9 F 98 15 149/98 95 Intake and Output 12/22/16 12/23/16 12/23/16 23:59 07:59 15:59 Intake Total 1537 / 1537 858 / 858 0 / 0 Output Total 1100 / 1100 1000 / 1000 300 / 300 Balance 437 / 437 -142 / -142 -300 / -300 Intake: IV Fluids 1537 / 1537 858 / 858 0.9 % Sodium Chloride 1,000 ML 392 / 392 608 / 608 @ 50 mls/hr IVC .Q20H [facility] Rx#: [id number] Clinimix E 5%-15% SOLUTION 2, 1035 / 1035 000 ML @ 45 mls/hr IVC .Q24H [facility] with M.v.i. Adult 10 ml Rx# :[id number] Intralipid 20% 250 ML @ 21 mls/ 250 / 250 hr IVPB DAILY@1700 [facility] Rx#: [id number] Sodium Phosphate 30 MMOL In 110 / 110 Dextrose 5% 100 ML @ 16 mls/hr IVPB ONCE ONE Rx#:[id number] Oral 0 / 0 0 / 0 0 / 0 Output: Urine 1100 / 1100 1000 / 1000 300 / 300 Other: Meal NPO NPO Breakfast Weight 55.6 kg Blood Glucose* 99 113 Patient Weight 12/23/16 23:59 Weight 55.6 kg - General physical appearance well developed - Respiratory normal expansion, normal respiratory effort - Cardiovascular Cardiovascular exam: Present: RRR - Abdomen Abdomen: Present: soft, tender (primarily along incision; non peritoneal) - Incision Incision: Present: clean and dry, intact - Neurologic CN 2-12 grossly intact - Labs 12/20/16 04:27 12/23/16 03:19 Diabetes panel 12/23/16 Range/Units 03:19 Sodium 130 L (136-145) mEq/L Potassium 3.6 (3.5-4.5) mEq/L Chloride 100 (98-109) mEq/L Carbon Dioxide 22 (19-29) mEq/L BUN 12 (7-20) mg/dL Creatinine 0.55 L (0.57-1.11) mg/dL Glucose 92 (70-99) mg/dL Calcium 8.1 L (8.6-10.8) mg/dL Calcium panel 12/23/16 Range/Units 03:19 Calcium 8.1 L (8.6-10.8) mg/dL Phosphorus 2.8 (2.3-4.7) mg/dL Pituitary panel 12/23/16 Range/Units 03:19 Sodium 130 L (136-145) mEq/L Potassium 3.6 (3.5-4.5) mEq/L Chloride 100 (98-109) mEq/L Carbon Dioxide 22 (19-29) mEq/L BUN 12 (7-20) mg/dL Creatinine 0.55 L (0.57-1.11) mg/dL Glucose 92 (70-99) mg/dL Calcium 8.1 L (8.6-10.8) mg/dL Adrenal panel 12/23/16 Range/Units 03:19 Sodium 130 L (136-145) mEq/L Potassium 3.6 (3.5-4.5) mEq/L Chloride 100 (98-109) mEq/L Carbon Dioxide 22 (19-29) mEq/L BUN 12 (7-20) mg/dL Creatinine 0.55 L (0.57-1.11) mg/dL Glucose 92 (70-99) mg/dL Calcium 8.1 L (8.6-10.8) mg/dL - VTE Documentation of Mechanical Device: Graduated compression elastic hosiery Consult Discharge Plan - Plan Referrals: Sacha Guevara MD [Non-Partnered Physician] - 12/27/16 1:30 pm
[2016-12-23] MEDS ORDERED: Clinimix E 5%-15% SOLUTION 2,000 ML with MVI, adult with vitamin K 10 ML IVC SCH (17:00)
[2016-12-23] MEDS: *HR* OxyCODONE/APAP 7.5/325 TABLET PO PRN ×2 (17:09→23:40)
--- NOTE | 2016-12-23 17:23 | Vascular/Endovasc Consult Note ---
Date of Encounter: 12/23/16 Time of Encounter: 16:00 Assessment and Plan (1) Abdominal pain Current Visit: Yes Status: Resolved The patient has had multiple episodes of nausea, vomiting and distention during the last 5 years. Her symptoms appear episodic and consistent with recurrent partial small bowel obstruction. She denies any intestinal angina or food aversion and has been able to tolerate a normal diet between these episodes. Her CT scan was reviewed and her Celiac Burke and Superior Mesenteric arteries are patent without stenosis. Minimal calcifications are present. The Inferior Mesenteric Artery is also identified. She has no signs or symptoms of chronic mesenteric ischemia. The etiology of the appearance of her ileum during surgery is uncertain at this time. The patient may follow-up with vascular surgery as needed. Recommend Aspirin 81mg daily at discharge. Qualifiers: Abdominal location: generalized Qualified Code(s): R10.84 - Generalized abdominal pain (2) Tobacco abuse Current Visit: Yes Status: Acute The patient was counseled regarding atherosclerotic risk factor reduction and smoking cessation. - History of Present Illness Consult date: 12/23/16 Requesting physician: Sacha Guevara Consult reason: Abdominal Pain Chief complaint: Abdominal pain, recurrent nausea History of present illness: Ms. Cardenas is a 61 year old female who reports a long history of recurrent episodes of abdominal pain, nausea and abdominal distension. She describes these episodes as intermittent with intervals of normal bowel function between the episodes. She reports taht her symptomsbegan more than five years ago have been treated with antibiotics and bowel rest. She denied a prior history of surgery. The patient recently presented with recurrent symptoms. She was taken to the operating room were she underwent exploration with lysis of adhesions by Dr. Guevara. She was transferred to the floor after surgery and placed on bowel rest and total parenteral nutrition. She was started on a diet and expects to advance her diet today. Dr. Guevara reported that her ileum was viable, but had an abnormal appearance during surgery. He was concerned for possible mesenteric ischemia and vascular surgery was consulted for further evaluation. The patient denies any new abdominal pain. She denies food aversion or symptoms of intestinal angina. She reports some weight loss, but it has not been dramatic or sudden. She denies any palpitations. She denies chest pain or shortness of breath. Past Med Surg Social Fam HX - Past Medical History Medical history: GERD, hyperlipidemia Psychiatric history: anxiety, depression - Past Surgical History Surgical History: breast surgery - Social History Smoking Status: Current every day smoker Packs per day: 1 Smokeless Tobacco Status: No Alcohol use: none Drug use: none - Family History Mother Living Status: Father Living Status: Hx Family Cancer: Yes (Unknown) Medications and Allergies ALPRAZolam [Xanax 0.5 MG Tablet] 0.5 mg PO BID PRN 08/12/16 [History] FLUoxetine HCl [Prozac] 40 mg PO QAM 08/12/16 [History] Ranitidine HCl [Zantac] 300 mg PO DAILY 08/12/16 [History] Cholecalciferol (Vitamin D3) [Vitamin D3] 10,000 unit PO DAILY 11/15/16 [History ] Docusate [Colace] 100 mg PO BID #30 capsule 12/24/16 [Rx] Ibuprofen 800 mg PO Q8H PRN #60 tablet 12/24/16 [Rx] OxyCODONE/APAP 5/325 [Percocet 5/325 MG] 1 each PO Q6HR PRN #28 tablet 12/24/16 [Rx] 3 Allergy/AdvReac Type Severity Reaction Status Date / Time No Known Allergies Allergy Verified 12/17/16 09:03 All Systems Review: A 10-system review of systems was performed and is negative for pertinent findings except as documented above in the HPI. - Constitutional Constitutional: no chills, no fever(s) - Cardiovascular Cardiovascular: no chest pain at rest, no dyspnea at rest Exam Vital Signs, Last 4 Hours Temp Pulse Resp BP Pulse Ox 12/23/16 15:30 98.2 F 87 14 158/93 98 General: Present: Conversant, No Apparent Distress HEENT: Present: Atraumatic, Normocephaly, Trachea midline, Pupils equal Neck: Absent: JVD, Lymphadenopathy, Left Carotid bruit, Right Carotid bruit Cardiac: Present: Reg Rate and Rhythm, Normal S1 and S2, No Murmur Lungs: Present: Normal Breath Sounds, No Wheeze, Rales, Rhonchi Neuro: Present: Alert and responsive, No focal deficits noted, Cranial nerves grossly intact, Motor nerves grossly intact, Sensory nerves grossly intact Abdomen: Present: Soft, Other (bowel sounds present, no distention, incisional tenderness, njo rebound, no guarding) Vascular: Present: Normal capillary refill. Absent: Cyanosis, Edema Skin: Present: No rashes noted on visualized skin Musculoskeletal: Present: No Chest Wall Tenderness Consult Discharge Plan - Plan Instructions: Exploratory Laparoscopy (DC) Additional Instructions: General Surgical Discharge Instructions 1. No pushing, pulling, or lifting greater than 15 lbs for two weeks. 2. You may shower beginning today, but no tub baths, soaking, or swimming for 2 weeks. 3. You may resume driving when you are off narcotics and are safe to react in a car. 4. Take narcotics as directed. Do not take more narcotics then directed and do not share your narcotics with any other person. Do not drink alcohol while on narcotics. 5. Take stool softeners (Colace) or a water based laxative (Miralax) while taking narcotics. You may hold for loose stools. 6. Report any fevers greater than 100.5F, increase abdominal discomfort, drainage that looks like pus, increased redness or pain at the surgical site, or any vomiting. 7. Report any pain in the calves, shortness of breath, or rapid heartbeat. 8. Follow-up in the office as directed. 9. If you were prescribed antibiotics, do not stop them without talking to your provider. Referrals: Sacha Guevara MD [Non-Partnered Physician] - 01/10/17 2:15 pm Prescriptions: OxyCODONE/APAP 5/325 [Percocet 5/325 MG] 1 each PO Q6HR PRN #28 tablet PRN Reason: Pain Docusate [Colace] 100 mg PO BID #30 capsule Ibuprofen 800 mg PO Q8H PRN #60 tablet PRN Reason: Pain
[2016-12-24] MEDS: 0.9 % Sodium Chloride 1,000 ML IVC SCH (01:18)
[2016-12-24 03:29] LABS: BUN/Creatinine Ratio 27 (6-26); Blood Urea Nitrogen 13 mg/dL (7-20); Calcium 7.9 mg/dL (8.6-10.8); Carbon Dioxide 23 mEq/L (19-29); Chloride 105 mEq/L (98-109); Glucose 95 mg/dL (70-99); Magnesium 1.8 mg/dL (1.6-2.6); Osmolality,Calculated 276 (280-300); Phosphorous 2.3 mg/dL (2.3-4.7); Potassium 3.6 mEq/L (3.5-4.5); Sodium 133 mEq/L (136-145); eGFR For African Americans > 60 (> 60); eGFR For Non-African Americans > 60 (> 60)
[2016-12-24] MEDS: *HR* Enoxaparin 40 MG/0.4 ML SYRINGE SQ SCH (05:57)
[2016-12-24] MEDS: *HR* OxyCODONE/APAP 7.5/325 TABLET PO PRN ×2 (05:57→13:05)
[2016-12-24] MEDS: FLUoxetine 20 MG CAPSULE PO SCH (08:16)
[2016-12-24] MEDS: Pantoprazole 40 MG VIAL IVP SCH (08:16)
[2016-12-24] MEDS: Cholecalciferol (D-3) 1,000 UNIT TABLET PO SCH (08:16)
--- NOTE | 2016-12-24 09:36 | General Surgery Progress Note ---
Date of Encounter: 12/24/16 Time of Encounter: 09:34 - Assessment and Plan (1) Pneumatosis intestinalis Current Visit: Yes Status: Acute 61F POD #5 s/p diagnostic laparoscopy converted to ex lap, pedrito, irrigation of abdominal ascites, omentecotmy 2/2 pneumotosis intestinalis, pneumoperitoneum and abdominal pain of unknown etiology, now with an ileus that is resolved - reg diet this AM - dec TPN by 1/2, d/c at lunch - plan for d/c after lunch and follow up in 2 weeks (2) Pneumoperitoneum of unknown etiology Current Visit: Yes Status: Acute see above (3) Abdominal pain Current Visit: Yes Status: Acute see above Qualifiers: Abdominal location: generalized Qualified Code(s): R10.84 - Generalized abdominal pain Subjective Patient reports: feels better, still having pain, pain is less, tolerating liquids well, flatus Objective Vital Signs - Last 8 Hours Temp Pulse Resp BP Pulse Ox 12/24/16 08:03 97.7 F 82 16 149/80 97 12/24/16 04:50 98.0 F 83 14 159/81 97 Intake and Output 12/23/16 12/24/16 12/24/16 23:59 07:59 15:59 Intake Total 240 / 240 1250 / 1250 0 / 0 Output Total 1000 / 1000 1700 / 1700 500 / 500 Balance -760 / -760 -450 / -450 -500 / -500 Intake: IV Fluids 1250 / 1250 0.9 % Sodium Chloride 1,000 ML 1000 / 1000 @ 50 mls/hr IVC .Q20H [facility] Rx#: [id number] Intralipid 20% 250 ML @ 21 mls/ 250 / 250 hr IVPB DAILY@1700 [facility] Rx#: [id number] Oral 240 / 240 0 / 0 0 / 0 Output: Urine 1000 / 1000 700 / 700 Urine/Stool Mix 1000 / 1000 500 / 500 Other: Meal Dinner Percent of Meal Consumed 25% Stool Size Moderate Stool Consistency liquid soft formed Stool Color Brown Weight 55.6 kg Blood Glucose* 108 111 107 Patient Weight 12/24/16 23:59 Weight 55.6 kg - General physical appearance well developed, well nourished, no distress - Respiratory normal expansion, normal respiratory effort - Cardiovascular Cardiovascular exam: Present: RRR - Abdomen Abdomen: Present: soft, tender (along incision) - Incision Incision: Present: clean and dry, intact - Neurologic CN 2-12 grossly intact - Psychiatric oriented to time, oriented to person, oriented to place - Labs 12/20/16 04:27 12/24/16 03:06 Diabetes panel 12/24/16 Range/Units 03:06 Sodium 133 L (136-145) mEq/L Potassium 3.6 (3.5-4.5) mEq/L Chloride 105 (98-109) mEq/L Carbon Dioxide 23 (19-29) mEq/L BUN 13 (7-20) mg/dL Creatinine 0.49 L (0.57-1.11) mg/dL Glucose 95 (70-99) mg/dL Calcium 7.9 L (8.6-10.8) mg/dL Calcium panel 12/24/16 Range/Units 03:06 Calcium 7.9 L (8.6-10.8) mg/dL Phosphorus 2.3 (2.3-4.7) mg/dL Pituitary panel 12/24/16 Range/Units 03:06 Sodium 133 L (136-145) mEq/L Potassium 3.6 (3.5-4.5) mEq/L Chloride 105 (98-109) mEq/L Carbon Dioxide 23 (19-29) mEq/L BUN 13 (7-20) mg/dL Creatinine 0.49 L (0.57-1.11) mg/dL Glucose 95 (70-99) mg/dL Calcium 7.9 L (8.6-10.8) mg/dL Adrenal panel 12/24/16 Range/Units 03:06 Sodium 133 L (136-145) mEq/L Potassium 3.6 (3.5-4.5) mEq/L Chloride 105 (98-109) mEq/L Carbon Dioxide 23 (19-29) mEq/L BUN 13 (7-20) mg/dL Creatinine 0.49 L (0.57-1.11) mg/dL Glucose 95 (70-99) mg/dL Calcium 7.9 L (8.6-10.8) mg/dL - VTE Documentation of Mechanical Device: Graduated compression elastic hosiery Consult Discharge Plan - Plan Referrals: Sacha Guevara MD [Non-Partnered Physician] - 12/27/16 1:30 pm
[2016-12-24 11:57] VITALS: BP 140/80
--- NOTE | 2016-12-24 14:26 | Discharge Summary ---
<Tamara Lindsey L - Last Filed: 12/24/16 14:21> Date of Encounter: 12/24/16 Time of Encounter: 14:21 - Discharge Diagnosis (1) Pneumatosis intestinalis Priority: Primary Status: Resolved (2) Pneumoperitoneum of unknown etiology Priority: Secondary Status: Resolved (3) Abdominal pain Priority: Secondary Status: Resolved Qualifiers: Abdominal location: generalized Qualified Code(s): R10.84 - Generalized abdominal pain - Discharge Medications Prescriptions: OxyCODONE/APAP 5/325 [Percocet 5/325 MG] 1 each PO Q6HR PRN #28 tablet PRN Reason: Pain Docusate [Colace] 100 mg PO BID #30 capsule Ibuprofen 800 mg PO Q8H PRN #60 tablet PRN Reason: Pain Home Medications: ALPRAZolam [Xanax 0.5 MG Tablet] 0.5 mg PO BID PRN 08/12/16 [History] FLUoxetine HCl [Prozac] 40 mg PO QAM 08/12/16 [History] Ranitidine HCl [Zantac] 300 mg PO DAILY 08/12/16 [History] Cholecalciferol (Vitamin D3) [Vitamin D3] 10,000 unit PO DAILY 11/15/16 [History ] Docusate [Colace] 100 mg PO BID #30 capsule 12/24/16 [Rx] Ibuprofen 800 mg PO Q8H PRN #60 tablet 12/24/16 [Rx] OxyCODONE/APAP 5/325 [Percocet 5/325 MG] 1 each PO Q6HR PRN #28 tablet 12/24/16 [Rx] Allergies/Adverse Reactions: 3 Allergy/AdvReac Type Severity Reaction Status Date / Time No Known Allergies Allergy Verified 12/17/16 09:03 General Surgery Exam Initial Vital Signs Temp Pulse Resp BP Pulse Ox 97.7 F 92 18 103/65 97 12/17/16 09:12 12/17/16 09:12 12/17/16 09:12 12/17/16 09:12 12/17/16 09:12 Date of admission: 12/17/16 16:00 Primary care physician: Melodie Calhoun CNP Consults: 12/21/16 09:30 Consult to Nutrition [CONS] Routine Comment: Consulting Provider: NUTRITION Reason for Dietary Consult: TPN Start and Manage Consult to PICC team [Consult to Invasive Line Access Team] [CONS] Routine Reason for Consult: tpn Line Type: PICC 12/21/16 14:13 Consult to Invasive Line Access Team [CONS] Routine Reason for Consult: Picc Line Insertion Line Type: PICC 12/23/16 11:24 Consult to Vascular Surgery [CONS] Routine Consulting Provider: Vascular Surgery Minal Reason for Consult: concern for CMI; okay for outpatient follow up Call Completed: Yes Discharging clinician: Sacha Lindsey) Anticipated date of discharge: 12/24/16 - Patient Status Disposition: Home, Self-Care Condition: Good Functional capacity at discharge: independent ambulation Overall status at discharge: patient is progressing back to baseline - Discharge Instructions Instructions: Ibuprofen (By mouth), Oxycodone/Acetaminophen (By mouth), Laxative, Stool Softeners (By mouth), Exploratory Laparoscopy (DC) Follow Up With: Sacha Khan MD [Non-Partnered Physician] - 01/10/17 2:15 pm Additional Instructions: General Surgical Discharge Instructions 1. No pushing, pulling, or lifting greater than 15 lbs for two weeks. 2. You may shower beginning today, but no tub baths, soaking, or swimming for 2 weeks. 3. You may resume driving when you are off narcotics and are safe to react in a car. 4. Take narcotics as directed. Do not take more narcotics then directed and do not share your narcotics with any other person. Do not drink alcohol while on narcotics. 5. Take stool softeners (Colace) or a water based laxative (Miralax) while taking narcotics. You may hold for loose stools. 6. Report any fevers greater than 100.5F, increase abdominal discomfort, drainage that looks like pus, increased redness or pain at the surgical site, or any vomiting. 7. Report any pain in the calves, shortness of breath, or rapid heartbeat. 8. Follow-up in the office as directed. 9. If you were prescribed antibiotics, do not stop them without talking to your provider. - Diet and Activity Activity: increase activity as tolerated Diet: advance to your usual diet - Hospital Course Hospital course: Ms. Cardenas is a 61 year old female underwent diagnostic laparoscopy converted to exploratory laparotomy, extensive lysis of adhesions, intraoperative Doppler exam line 12/17/2016 [facility] [place] Dr. khan 2/2 pneumotosis intestinalis, pneumoperitoneum, and abdominal pain of unknown etiology. Postoperative days 1 and 2 were uncomplicated. On postoperative day 3, She developed a postoperative ileus for which she was treated within NG tube. 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 Days 5 and 6 were unremarkable. Note, per Dr. Khan, patient also has had moderate nonsevere protein calorie malnutrition with a weight loss of 8 to 10% of body weight in the last 6 months. In addition to the intraoperative findings he was concerned for chronic mesenteric ischemia. Vascular surgery was consult it for evaluation as further outpatient follow-up. Dr. Venegas saw the patient and felt she had no sign of mesenteric ischemia. She has ambulating and voiding without difficulty. She is afebrile and her vital signs are stable. She is tolerating a regular diet. We will begin discharge planning with an office follow-up with Dr. khan on January 10, 2017 at 2:15 pm - Time Spent with Patient Total time spent providing and/or coordinating discharge services: Labs on day of discharge: Labs from last 24 hours 12/24/16 12/23/16 03:06 16:02 Sodium 133 L Potassium 3.6 Chloride 105 Carbon Dioxide 23 BUN 13 Creatinine 0.49 L Est GFR ( Amer) > 60 Est GFR (Non-Af Amer) > 60 BUN/Creatinine Ratio 27 H Glucose 95 POC Glucose 100 H Calculated Osmolality 276 L Calcium 7.9 L Phosphorus 2.3 Magnesium 1.8 - Impressions ITS Impressions Chest/Abdomen X-ray 12/18/16 06:19 IMPRESSION: No acute process in the chest. Trace amount of free air underneath the right hemidiaphragm consistent with recent operative state. Gaseous distention of small and large bowel likely related to postoperative ileus. If there is concern for developing distal bowel obstruction, follow-up radiographs may be helpful for further evaluation. D/ / Savanna Leon MD / Savanna Leon MD Interpreting Provider: Savanna Leon MD X-Ray 12/18/16 09:08 IMPRESSION: Nasogastric tube in appropriate position. Bowel gas pattern unchanged. D/ / 12/18/2016 10:54:23 Amado Gonzalez MD / alan Interpreting Provider: Amado Gonzalez MD <Sacha Khan - Last Filed: 12/24/16 15:38> Date of Encounter: 12/24/16 - Discharge Diagnosis (1) Pneumatosis intestinalis Status: Resolved (2) Pneumoperitoneum of unknown etiology Status: Resolved (3) Abdominal pain Status: Resolved Qualifiers: Abdominal location: generalized Qualified Code(s): R10.84 - Generalized abdominal pain General Surgery Exam Initial Vital Signs Temp Pulse Resp BP Pulse Ox 97.7 F 92 18 103/65 97 12/17/16 09:12 12/17/16 09:12 12/17/16 09:12 12/17/16 09:12 12/17/16 09:12 Date of admission: 12/17/16 16:00 Primary care physician: Melodie Calhoun CNP Consults: 12/21/16 09:30 Consult to Nutrition [CONS] Routine Comment: Consulting Provider: NUTRITION Reason for Dietary Consult: TPN Start and Manage Consult to PICC team [Consult to Invasive Line Access Team] [CONS] Routine Reason for Consult: tpn Line Type: PICC 12/21/16 14:13 Consult to Invasive Line Access Team [CONS] Routine Reason for Consult: Picc Line Insertion Line Type: PICC 12/23/16 11:24 Consult to Vascular Surgery [CONS] Routine Consulting Provider: Vascular Surgery Minal Reason for Consult: concern for CMI; okay for outpatient follow up Call Completed: Yes - Hospital Course Hospital course: Ms. Cardenas is a 61 year old female - Time Spent with Patient Total time spent providing and/or coordinating discharge services: Labs on day of discharge: Labs from last 24 hours 12/24/16 12/23/16 03:06 16:02 Sodium 133 L Potassium 3.6 Chloride 105 Carbon Dioxide 23 BUN 13 Creatinine 0.49 L Est GFR ( Amer) > 60 Est GFR (Non-Af Amer) > 60 BUN/Creatinine Ratio 27 H Glucose 95 POC Glucose 100 H Calculated Osmolality 276 L Calcium 7.9 L Phosphorus 2.3 Magnesium 1.8 - Impressions ITS Impressions Chest/Abdomen X-ray 12/18/16 06:19 IMPRESSION: No acute process in the chest. Trace amount of free air underneath the right hemidiaphragm consistent with recent operative state. Gaseous distention of small and large bowel likely related to postoperative ileus. If there is concern for developing distal bowel obstruction, follow-up radiographs may be helpful for further evaluation. D/ / Savanna Leon MD / Savanna Leon MD Interpreting Provider: Savanna Leon MD X-Ray 12/18/16 09:08 IMPRESSION: Nasogastric tube in appropriate position. Bowel gas pattern unchanged. D/ / 12/18/2016 10:54:23 Amado Gonzalez MD / alan Interpreting Provider: Aamdo Gonzalez MD - Attending Attestation I have personally seen and examined the patient. I have reviewed pertinent labs , imaging, progress notes, including this one. I agree with the above assessment and plan and discharge summary
== END 2016-12-24 16:04 | disposition home or self-care (01) | DRG 336 ==
LOC: SAMDAY 08:44 → 3ANU 16:00
PROVIDERS: ADMIT Surgery; ATTEND Surgery

== ENCOUNTER 2017-07-06 06:17 | Inpatient (IN) ==
[2017-07-06] MEDS ORDERED: CeFAZolin Syr 2,000MG/20 ML 2,000 MG/20 ML SYRINGE IVPB ONE (07:14)
[2017-07-06] MEDS ORDERED: Albuterol 2.5 MG/3 ML NEBULIZER IH ONE (07:14)
[2017-07-06] MEDS ORDERED: Lidocaine -MPF 1% 2 ML VIAL ID ONE (07:14)
--- NOTE | 2017-07-06 07:23 | History & Physical Report ---
Date of Encounter: 07/06/17 Time of Encounter: 07:21 24 Hour HP Update - Instructions Instructions: If the History and Physical is less than 30 days old and was completed prior to A.M. admission and or procedure and has NOT been updated on calendar day of procedure please complete this update prior to performing procedure. - Update Patient reports changes in Medical Condition: No Changes in examination, assessment, or condition: No Changes in Medication: No Preop tests/diagnostics Reviewed: Yes Surgery Remains Indicated: Yes Consent for Planned Operative Procedure(s) Verified: Yes - Pre-Operative Checklist Preoperative Checklist Indicated: Yes Prophylactic Antibiotic Ordered: Yes Home Medications Include Beta Enrike: No Beta Enrike Taken Today (Day of Surgery): No Beta Enrike Taken Yesterday (Day Prior to Surgery): No Is VTE Prophylaxis Indicated?: Yes - Attending Attestation patient seen and examined. NO changes in patient health since last evaluation; discussed the case with radiation oncology and rheumatology. Concern that she has systemic sclerosis. Per radiation oncology, radiation would not be a good option for her. Will proceed with total mastectomy with sentinel lymph node biopsy.
[2017-07-06] MEDS: Ringers Solution, Lactated 1,000 ML IVC SCH ×3 (07:48→12:30)
[2017-07-06] MEDS ORDERED: Scopolamine Patch 1.5 MG PATCH.TD72 TD ONE (08:05)
[2017-07-06] MEDS ORDERED: Famotidine 20 MG/2 ML VIAL IVP ONE (08:05)
[2017-07-06] MEDS ORDERED: Metoclopramide 10 MG/2 ML VIAL IVP ONE (08:05)
[2017-07-06] MEDS ORDERED: Pregabalin 75 MG CAPSULE PO ONE (08:07)
[2017-07-06] MEDS ORDERED: ACETAMINOPHEN IVPB ONE (08:07)
--- NOTE | 2017-07-06 08:14 | Anesthesia Evaluation PreOp ---
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: Other (Anxiety/Depression maintained on Xanax, Fluoxetine) Other Medical History: GERD, Other (RayNaud's syndrome, L-Breast Cancer - Invasive ductal carcinoma) Anesthesia History: No Prior Anesthetic Complications, Past Anesthesia (Breast Bx/Lymph Node, EGD, BTL, Expl Lap/Lysis of Adhesion) Alcohol Use: none Drug use: none Medications and Allergies ALPRAZolam [Xanax 0.5 MG Tablet] 0.5 mg PO BID PRN 08/12/16 [History] FLUoxetine HCl [Prozac] 40 mg PO QAM 08/12/16 [History] Cholecalciferol (Vitamin D3) [Vitamin D3] 10,000 unit PO DAILY 11/15/16 [History ] 3 Allergy/AdvReac Type Severity Reaction Status Date / Time No Known Allergies Allergy Verified 07/06/17 06:44 - Meds/Allergy Pre-op Review Medications Reviewed: Yes Allergies Reviewed: Yes Beta Blockers on Current Med List: No Anesthesia Results - Labs Laboratory Tests 06/24/17 07/01/17 07/01/17 09:23 15:07 15:07 WBC 5.5 Hgb 13.1 Hct 40.4 Plt Count 352 Sodium 139 Potassium 4.1 Chloride 105 Carbon Dioxide 28 BUN 14 Creatinine 1.56 H Est GFR (Non-Af Amer) 34 L Glucose 92 Creatine Kinase 22 L C-Reactive Protein 11 H Globulin 3.7 H - Imaging EKG: image reviewed (82bpm SR, Low voltage) Additional studies: ECHO 06/2017 - EV/EV echocardiogram Impressions: LVEF 65%. Mild left ventricular diastolic dysfunction. Normal right ventricular structure and function. No significant valvular dysfunction. No pulmonary hypertension. Left Ventricular Wall Motion: Rest Echo Findings All wall segments showed normal motion. Anesthesia Exam O2 Sat Height 1.6 m Height 1.6 m Height 1.6 m Weight 49.895 kg Weight 49.895 kg Weight 49.895 kg O2 Sat by Pulse Oximetry 96 O2 Sat by Pulse Oximetry 96 O2 Sat by Pulse Oximetry 96 Vital Signs Temp Pulse Resp BP Pulse Ox 97.5 F L 84 18 102/71 96 07/06/17 06:36 07/06/17 06:36 07/06/17 06:36 07/06/17 06:36 07/06/17 06:36 Height: 5'3" Weight: 19.5 NPO (# of Hours): MNOc - HEENT Pupil (Motor): Pupils equal, EOMI Mallampati: III Teeth: Poor dentition Oral Opening: Greater than 3 - SALT MACHINE OPERATOR LOC: Oriented SALT MACHINE OPERATOR Motor: Normal RUE, Normal LUE, Normal RLE, Normal LLE, Normal Face SALT MACHINE OPERATOR Sensory: Normal: RUE, LUE, RLE, LLE, Face - Cardiac Rhythm: Regular Murmur: None - Pulmonary Breath Sounds: left Clear, left Rales, left Rhonchi Anesthesia Assess/Plan ASA Score: 3 (Smoker, COPD, Breast Ca) Modified Gee Scale for Level of Consciousness: Cooperative, oriented, and tranquil Anesthetic Plan: General Monitoring Plan: Standard Monitors Recovery Plan: PACU Anes Supervising Prov Stmt: Pt seen/evaluated, R&B discussed, questions answered and consent obtained. Mckay Ely MD
[2017-07-06] MEDS ORDERED: *HR* FentaNYL (PF) 100 MCG/2 ML VIAL ONE (08:40)
[2017-07-06] MEDS ORDERED: *HR* Midazolam HCl 2 MG/2 ML VIAL ONE (08:40)
[2017-07-06] MEDS ORDERED: *HR* Propofol 200 MG/20 ML VIAL IVP ONE (08:41)
[2017-07-06] MEDS ORDERED: *HR* PHENYLEPHRINE 1,000 MCG/10 ML SYRINGE IVP ONE (09:50)
[2017-07-06] MEDS ORDERED: Ondansetron 4 MG/2 ML VIAL IVP ONE (09:52)
[2017-07-06] MEDS ORDERED: MORPHINE SUL Oral CONC 10 MG/0.5 ML ORAL.SYG SL PRN (09:52)
[2017-07-06] MEDS ORDERED: *HR* HYDROmorphone 2 MG TABLET PO PRN (09:52)
[2017-07-06] MEDS ORDERED: *HR* OxyCODONE Immed Rel 5 MG TABLET PO PRN (09:52)
[2017-07-06] MEDS ORDERED: Ondansetron 4 MG/2 ML VIAL ONE (09:55)
[2017-07-06] MEDS ORDERED: Dexamethasone 4 MG/ML VIAL ONE (09:55)
[2017-07-06] MEDS ORDERED: Neostigmine Methylsulfate 3 MG/3 ML SYRINGE ONE (11:00)
[2017-07-06] MEDS ORDERED: Ketorolac 30 MG/ML VIAL ONE (11:00)
--- NOTE | 2017-07-06 12:22 | Anesthesia Evaluation Post Op ---
Date of Encounter: 07/06/17 Time of Encounter: 12:21 - Vital Signs Vital Signs: Selected Entries 07/06/17 07:17 Temperature 97.5 F L Pulse Rate 84 Respiratory Rate 18 Blood Pressure 102/71 O2 Sat by Pulse Oximetry 96 Oxygen Delivery Method Room Air - Lungs Lungs: Clear Ascult./Percussion - Airway Airway: Non-obstructed - Cardiovascular Regular Rate - Mental Status Mental Status: Alert & Oriented, Answers Appropriately - Pain Pain Scale: 0 Pain Scale used: Numeric (1 - 10) - Nausea Vomiting Nausea Vomiting: Not Present - Hydration Hydration: Ice chips, Has not voided - Discharge PostOp Status: Transfer Patient to floor
[2017-07-06] MEDS ORDERED: ALPRAZolam 0.5 MG TABLET PO PRN (12:59)
[2017-07-06] MEDS ORDERED: Acetaminophen 325 MG TABLET PO PRN (12:59)
[2017-07-06] MEDS ORDERED: Naloxone 0.4 MG/ML INJ IVP PRN (12:59)
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
[2017-07-06] MEDS: *HR* OxyCODONE Immed Rel 5 MG TABLET PO PRN ×2 (16:35→21:16)
[2017-07-06] MEDS: D5% in 0.45% NACL w KCl 20 MEQ/1,000 ML MLS IVC SCH (19:50)
[2017-07-06] MEDS: Ondansetron 4 MG/2 ML VIAL IVP PRN (19:50)
[2017-07-06] MEDS ORDERED: *HR* Morphine 2 MG/ML SYRINGE IVP ONE (23:45)
[2017-07-07] MEDS: traMADol 50 MG TABLET PO PRN ×2 (00:44→11:35)
[2017-07-07] MEDS: FLUoxetine 20 MG CAPSULE PO SCH (08:15)
[2017-07-07] MEDS: *HR* OxyCODONE Immed Rel 5 MG TABLET PO PRN ×4 (08:15→21:51)
[2017-07-07] MEDS: Cholecalciferol (D-3) 1,000 UNIT TABLET PO SCH (08:15)
[2017-07-07] MEDS: D5% in 0.45% NACL w KCl 20 MEQ/1,000 ML MLS IVC SCH ×2 (08:16→20:27)
[2017-07-07] MEDS: Ondansetron 4 MG/2 ML VIAL IVP PRN ×4 (08:20→21:52)
--- NOTE | 2017-07-07 10:34 | General Surgery Progress Note ---
Date of Encounter: 07/07/17 Time of Encounter: 10:31 - Assessment and Plan (1) Breast cancer Current Visit: Yes Status: Acute POD#1 s/p L MRM 2/2 breast cancer and multiple bulky lymph nodes intraoperatively; increased distension, nausea; patient feels she is about to have a bowel movement, is having flatus cont with pain regimen ambulate cont diet limit arm movement; no higher than 45 degrees from hip; no lifting more than 10 lbs arm sling is helpful to help patient remember if patient able to tolerate lunch, then okay for d/c if continued nausea, then she needs to stay (did discuss with patient about NG tube) Qualifiers: Breast location: upper inner quadrant of breast Estrogen receptor status: unspecified Patient sex: female Laterality: left Qualified Code(s): C50.212 - Malignant neoplasm of upper-inner quadrant of left female breast Subjective Patient reports: no new complaints, feels better, still having pain, pain is less, nausea Objective Vital Signs - Last 8 Hours Temp Pulse Resp BP Pulse Ox 07/07/17 08:05 98.1 F 99 16 174/90 92 07/07/17 05:49 98.5 F 96 16 175/85 96 Intake and Output 07/06/17 07/07/17 07/07/17 23:59 07:59 15:59 Intake Total 600 / 600 0 / 0 1000 / 1000 Output Total 510 / 510 122 / 122 Balance 90 / 90 - 878 / 878 Intake: IV Fluids 1000 / 1000 KCl 20mEq IN D5%-0.45 NACL 20 1000 / 1000 meq In 1,000 ml @ 75 mls/hr IVC .[id number] [facility] Rx#:[id number] Oral 600 / 600 0 / 0 0 / 0 Output: Urine 400 / 400 0 / 0 100 / 100 Wound Drainage 110 / 110 MALENA#1 55 / 55 6 / 6 MALENA#2 55 / 55 Other: Meal Dinner Percent of Meal Consumed 100% # Voids 1 Weight 62.959 kg Patient Weight 07/07/17 23:59 Weight 62.959 kg - General physical appearance no distress - Respiratory normal expansion, normal respiratory effort - Cardiovascular Cardiovascular exam: Present: RRR - Abdomen Abdomen: Present: soft, distended - Incision Incision: Present: clean and dry, intact - Integumentary no rash - Neurologic CN 2-12 grossly intact - Psychiatric oriented to time, oriented to person, oriented to place - VTE Documentation of Mechanical Device: Intermittent pneumatic compression device Consult Discharge Plan - Plan Referrals: Melodie Calhoun, FLOW MACHINE OPERATOR [Primary Care Provider] -
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
[2017-07-07] MEDS ORDERED: Scopolamine Patch 1.5 MG PATCH.TD72 TD ONE (13:29)
[2017-07-07] MEDS ORDERED: *HR* Metoprolol 5 MG/5 ML VIAL IVP PRN (14:25)
[2017-07-07] MEDS ORDERED: traMADol 50 MG TABLET PO PRN (17:00)
[2017-07-08 05:26] LABS: Basophils % 0.1 %; Eosinophils % 0.1 %; Hematocrit 39.7 % (35.3-44.9); Hemoglobin 13.1 g/dL (11.5-15.4); Immature Granulocytes % 0.1 % (0-4); Lymphocytes # 1.1 K/mcL (0.6-4.6); Lymphocytes % 13.3 %; Mean Corpuscular Hemoglobin 28.2 pg (28.0-33.3); Mean Corpuscular Volume 85.6 fL (83.0-100.0); Mean Platelet Volume 10.1 fL (9.4-12.4); Monocytes # 0.6 K/mcL (0.0-1.3); Monocytes % 7.2 %; Neutrophils # 6.4 K/mcL (1.6-8.9); Platelet Count 351 K/mcL (140-400); Red Blood Count 4.64 M/mcL (3.82-4.97); Red Cell Distribution Width 14.8 % (11.5-14.5); Segmented Neutrophils % 79.2 %
[2017-07-08 05:54] LABS: Calcium 9.4 mg/dL (8.6-10.3); Potassium 3.2 mEq/L (3.5-5.1)
--- NOTE | 2017-07-08 06:53 | General Surgery Progress Note ---
Date of Encounter: 07/08/17 Time of Encounter: 06:45 - Assessment and Plan (1) Status post left mastectomy Current Visit: Yes Status: Acute POD#2 s/p L MRM 2/2 breast cancer and multiple bulky lymph nodes intraoperatively; increased distension, improved nausea but still not resolved; no bowel movement, is having flatus cont with pain regimen ambulate cont diet limit arm movement; no higher than 45 degrees from hip; no lifting more than 10 lbs arm sling is helpful to help patient remember (2) Breast cancer Current Visit: Yes Status: Acute Qualifiers: Breast location: upper inner quadrant of breast Estrogen receptor status: unspecified Patient sex: female Laterality: left Qualified Code(s): C50.212 - Malignant neoplasm of upper-inner quadrant of left female breast Subjective Narrative: Patient says her nausea has improved from yesterday but has not completely resolved. She denies any vomiting. Denies any bowel movement but admits to passing gas. Denies any chest pain or shortness of breath. Patient says she was not able to eat last night due to her nausea. She will try to eat again this morning. Objective VITAL SIGNS: Reviewed. See [facility] GENERAL: mild distress. HEENT: [Normocephalic, PER, EOMi, oropharynx pink/moist, no JVD noted.] CV: b/l rad pulses 2+, RRR, no murmurs or gallops, no JVD RESPIRATORY: CTAB without wheezes, rales, or rhonchi ABD: soft, non-tender, no rebound/guarding/rigidity. Abdomen distended. Positive fluid shift. INCISION: L Chest incision clean, dry, intact without purulence/bleeding/edema/ rubor/calor DRAINS: 2 drains superiorly and inferior along the L pec major. Drain sites without signs of infection; both bulb contains serosangious fluid. EXTREMITY: grossly normal motor function, no pedal edema, peripheral pulses 2+ b /l NEUROLOGIC EXAM: AOx3, obeys commands, no speech deficits. PSYCHIATRIC: normal mood and affect SKIN: Healed 3rd degree anderson roman across chest Vital Signs - Last 8 Hours Temp Pulse Resp BP Pulse Ox 07/08/17 03:32 97.9 F 83 15 148/81 90 07/07/17 23:37 98.2 F 78 14 146/81 91 Intake and Output 0507/07/17 07/08/17 15:59 23:59 07:59 Intake Total 1240 / 1240 1120 / 1120 0 / 0 Output Total 257 / 257 215 / 215 Balance 983 / 983 905 / 905 -25 Intake: IV Fluids 1000 / 1000 1000 / 1000 KCl 20mEq IN D5%-0.45 NACL 20 1000 / 1000 1000 / 1000 meq In 1,000 ml @ 75 mls/hr IVC .[id number] [facility] Rx#:[id number] Oral 240 / 240 120 / 120 0 / 0 Output: Urine 200 / 200 200 / 200 0 / 0 Wound Drainage 57 / 57 MALENA#1 MALENA#2 35 Other: Meal Lunch Dinner Percent of Meal Consumed 100% 100% Weight 62.777 kg Patient Weight 07/08/17 23:59 Weight 62.777 kg - Labs 07/08/17 03:50 07/08/17 03:50 Diabetes panel 07/08/17 Range/Units 03:50 Sodium 139 (136-145) mEq/L Potassium 3.2 L (3.5-5.1) mEq/L Chloride 95 L (98-107) mEq/L Carbon Dioxide 42 H* (23-29) mEq/L BUN 24 H (8-23) mg/dL Creatinine 1.24 H (0.60-1.20) mg/dL Glucose 150 H (70-105) mg/dL Calcium 9.4 (8.6-10.3) mg/dL Calcium panel 07/08/17 Range/Units 03:50 Calcium 9.4 (8.6-10.3) mg/dL Pituitary panel 07/08/17 Range/Units 03:50 Sodium 139 (136-145) mEq/L Potassium 3.2 L (3.5-5.1) mEq/L Chloride 95 L (98-107) mEq/L Carbon Dioxide 42 H* (23-29) mEq/L BUN 24 H (8-23) mg/dL Creatinine 1.24 H (0.60-1.20) mg/dL Glucose 150 H (70-105) mg/dL Calcium 9.4 (8.6-10.3) mg/dL Adrenal panel 07/08/17 Range/Units 03:50 Sodium 139 (136-145) mEq/L Potassium 3.2 L (3.5-5.1) mEq/L Chloride 95 L (98-107) mEq/L Carbon Dioxide 42 H* (23-29) mEq/L BUN 24 H (8-23) mg/dL Creatinine 1.24 H (0.60-1.20) mg/dL Glucose 150 H (70-105) mg/dL Calcium 9.4 (8.6-10.3) mg/dL - VTE Documentation of Mechanical Device: Intermittent pneumatic compression device Consult Discharge Plan - Plan Additional Instructions: Call your doctor or report to the emergency department if you have any new or worsening symptoms including, but not limited to: Headache, dizziness, fatigue, fevers, chills, night sweats, blurred vision, chest pain, nausea, vomiting, abdominal pain, or shortness of breath. Referrals: Melodie Calhoun, SPINNING FRAME CHANGER [Primary Care Provider] - Prescriptions: Docusate [Colace] 100 mg PO BID #30 capsule Ibuprofen 800 mg PO Q8H #42 tablet Ondansetron ODT [Zofran ODT] 4 mg PO Q6H PRN #15 tab.rapdis PRN Reason: Nausea Oxycodone HCl/Acetaminophen [Endocet 5-325 Tablet] 1 each PO Q6H PRN 7 Days #28 tablet PRN Reason: Pain
[2017-07-08] MEDS: Ondansetron 4 MG/2 ML VIAL IVP PRN (07:02)
--- NOTE | 2017-07-08 08:52 | General Surgery Progress Note ---
Date of Encounter: 07/08/17 Time of Encounter: 08:46 - Assessment and Plan (1) Breast cancer Current Visit: Yes Status: Acute POD#2 s/p L MRM 2/2 breast cancer and multiple bulky lymph nodes intraoperatively; increased distension, nausea; patient feels she is about to have a bowel movement, is having flatus cont with pain regimen ambulate NG t ube today limit arm movement; no higher than 45 degrees from hip; no lifting more than 10 lbs arm sling is helpful to help patient remember Qualifiers: Breast location: upper inner quadrant of breast Estrogen receptor status: unspecified Patient sex: female Laterality: left Qualified Code(s): C50.212 - Malignant neoplasm of upper-inner quadrant of left female breast Subjective Patient reports: no new complaints, nausea, vomiting Objective Vital Signs - Last 8 Hours Temp Pulse Resp BP Pulse Ox 07/08/17 07:28 97.4 F L 90 14 158/88 88 07/08/17 03:32 97.9 F 83 15 148/81 90 Intake and Output 07/07/17 07/08/17 07/08/17 23:59 07:59 15:59 Intake Total 1120 / 1120 0 / 0 Output Total 215 / 215 25 / 25 Balance 905 / 905 -25 / -25 Intake: IV Fluids 1000 / 1000 KCl 20mEq IN D5%-0.45 NACL 20 1000 / 1000 meq In 1,000 ml @ 75 mls/hr IVC .[id number] [facility] Rx#:[id number] Oral 120 / 120 0 / 0 Output: Urine 200 / 200 0 / 0 Wound Drainage 25 / 25 MALENA#1 MALENA#2 Other: Meal Dinner Percent of Meal Consumed 100% Weight 62.777 kg Patient Weight 07/08/17 23:59 Weight 62.777 kg - General physical appearance no distress - Neck Neck exam: no lymphadectomy - Respiratory normal expansion, normal respiratory effort - Cardiovascular Cardiovascular exam: Present: RRR - Abdomen Abdomen: Present: soft, non tender, distended - Incision Incision: Present: clean and dry, intact - Integumentary no rash, no abnormal pigmentation - Neurologic CN 2-12 grossly intact - Musculoskeletal normal posture - Psychiatric oriented to time, oriented to person, oriented to place - Labs 07/08/17 03:50 07/08/17 03:50 Diabetes panel 07/08/17 Range/Units 03:50 Sodium 139 (136-145) mEq/L Potassium 3.2 L (3.5-5.1) mEq/L Chloride 95 L (98-107) mEq/L Carbon Dioxide 42 H* (23-29) mEq/L BUN 24 H (8-23) mg/dL Creatinine 1.24 H (0.60-1.20) mg/dL Glucose 150 H (70-105) mg/dL Calcium 9.4 (8.6-10.3) mg/dL Calcium panel 07/08/17 Range/Units 03:50 Calcium 9.4 (8.6-10.3) mg/dL Pituitary panel 07/08/17 Range/Units 03:50 Sodium 139 (136-145) mEq/L Potassium 3.2 L (3.5-5.1) mEq/L Chloride 95 L (98-107) mEq/L Carbon Dioxide 42 H* (23-29) mEq/L BUN 24 H (8-23) mg/dL Creatinine 1.24 H (0.60-1.20) mg/dL Glucose 150 H (70-105) mg/dL Calcium 9.4 (8.6-10.3) mg/dL Adrenal panel 07/08/17 Range/Units 03:50 Sodium 139 (136-145) mEq/L Potassium 3.2 L (3.5-5.1) mEq/L Chloride 95 L (98-107) mEq/L Carbon Dioxide 42 H* (23-29) mEq/L BUN 24 H (8-23) mg/dL Creatinine 1.24 H (0.60-1.20) mg/dL Glucose 150 H (70-105) mg/dL Calcium 9.4 (8.6-10.3) mg/dL - VTE Documentation of Mechanical Device: Intermittent pneumatic compression device Consult Discharge Plan - Plan Additional Instructions: Call your doctor or report to the emergency department if you have any new or worsening symptoms including, but not limited to: Headache, dizziness, fatigue, fevers, chills, night sweats, blurred vision, chest pain, nausea, vomiting, abdominal pain, or shortness of breath. Referrals: Melodie Calhoun, AVIAN KEEPER [Primary Care Provider] - Prescriptions: Docusate [Colace] 100 mg PO BID #30 capsule Ibuprofen 800 mg PO Q8H #42 tablet Ondansetron ODT [Zofran ODT] 4 mg PO Q6H PRN #15 tab.rapdis PRN Reason: Nausea Oxycodone HCl/Acetaminophen [Endocet 5-325 Tablet] 1 each PO Q6H PRN 7 Days #28 tablet PRN Reason: Pain
[2017-07-08] MEDS: FLUoxetine 20 MG CAPSULE PO SCH (09:42)
[2017-07-08] MEDS: Cholecalciferol (D-3) 1,000 UNIT TABLET PO SCH (09:42)
[2017-07-08] MEDS: D5% in 0.45% NACL w KCl 20 MEQ/1,000 ML MLS IVC SCH (09:57)
[2017-07-08] MEDS ORDERED: Isovue-370 500 ML INFUS..BTL IV ONE (10:26)
[2017-07-08] MEDS: *HR* OxyCODONE Immed Rel 5 MG TABLET PO PRN ×2 (11:24→17:53)
[2017-07-09] MEDS: D5% in 0.45% NACL w KCl 20 MEQ/1,000 ML MLS IVC SCH ×2 (01:25→08:06)
[2017-07-09] MEDS: Cholecalciferol (D-3) 1,000 UNIT TABLET PO SCH (08:07)
[2017-07-09] MEDS: *HR* OxyCODONE Immed Rel 5 MG TABLET PO PRN (08:08)
[2017-07-09] MEDS: FLUoxetine 20 MG CAPSULE PO SCH (08:08)
[2017-07-09 09:45] LABS: Basophils % 0.5 %; Eosinophils # 0.2 K/mcL (0.0-0.6); Eosinophils % 3.5 %; Hematocrit 33.4 % (35.3-44.9); Immature Granulocytes % 0.2 % (0-4); Lymphocytes # 1.3 K/mcL (0.6-4.6); Lymphocytes % 30.4 %; Mean Corpuscular HGB Conc 30.5 g/dL (31.6-35.5); Mean Corpuscular Hemoglobin 27.9 pg (28.0-33.3); Mean Corpuscular Volume 91.3 fL (83.0-100.0); Mean Platelet Volume 10.1 fL (9.4-12.4); Monocytes # 0.4 K/mcL (0.0-1.3); Neutrophils # 2.4 K/mcL (1.6-8.9); Platelet Count 257 K/mcL (140-400); Red Blood Count 3.66 M/mcL (3.82-4.97); Red Cell Distribution Width 14.8 % (11.5-14.5); Segmented Neutrophils % 55.4 %
[2017-07-09 09:49] LABS: Hemoglobin 10.2 g/dL (11.5-15.4)
[2017-07-09 10:11] VITALS: BP 124/73
[2017-07-09 11:00] LABS: BUN/Creatinine Ratio 25 (6-26); Blood Urea Nitrogen 24 mg/dL (8-23); Calcium 8.4 mg/dL (8.6-10.3); Carbon Dioxide 30 mEq/L (23-29); Chloride 98 mEq/L (98-107); Glucose 107 mg/dL (70-105); Osmolality,Calculated 281 (280-300); Potassium 3.7 mEq/L (3.5-5.1); Sodium 133 mEq/L (136-145); eGFR For African Americans > 60 (> 60); eGFR For Non-African Americans 59 (> 60)
--- NOTE | 2017-07-09 14:32 | Discharge Summary ---
Orders not resulted at time of discharge: Pending orders 07/06/17 10:30 Surgical Pathology [PTH] Routine 07/10/17 04:00 BMP [Basic Metabolic Panel] AM 0400 Complete Blood Count [HEME] AM 0400 07/11/17 04:00 BMP [Basic Metabolic Panel] AM 0400 Complete Blood Count [HEME] AM 0400 Date of Encounter: 07/09/17 Time of Encounter: 12:30 - Discharge Diagnosis (1) Status post left mastectomy Priority: Primary Status: Acute Comments: Discharged with thorough instructions and return precautions. Two MALENA drains left in place with appropriate instructions. (2) Breast cancer Priority: Primary Status: Acute Comments: Path pending upon discharge. Qualifiers: Breast location: upper inner quadrant of breast Estrogen receptor status: unspecified Patient sex: female Laterality: left Qualified Code(s): C50.212 - Malignant neoplasm of upper-inner quadrant of left female breast General Surgery Exam Initial Vital Signs Temp Pulse Resp BP Pulse Ox 97.5 F L 84 18 102/71 96 07/06/17 06:36 07/06/17 06:36 07/06/17 06:36 07/06/17 06:36 07/06/17 06:36 VITAL SIGNS: Reviewed. See [facility] GENERAL: comfortably reclined in bed. NAD. Answers questions appropriately. HEENT: oropharynx pink/moist CV: RRR RESPIRATORY: CTAB ABD: soft, non-tender INCISION: clean, dry, intact without purulence/bleeding/edema/rubor/calor DRAINS: MALENA sites without signs of infection; bulbs contain approximately 30- 50cc serosanguinous fluid combined EXTREMITY: grossly normal motor function, no pedal edema, peripheral pulses 2+ b /l; RUE equal ROM with no stress on closure skin NEUROLOGIC EXAM: AOx3, obeys commands, no speech deficits. PSYCHIATRIC: normal mood and affect SKIN: no gross lesions, rashes, or skin changes - Hospital Course Hospital course: Ms. Cardenas is a 62-year-old woman who has a PMH of GERD, Raynauds, diagnostic laparoscopy converted to ex lap, irrigation of abdominal ascites in 12/14, and a right breast benign process necessitating lumpectomy and lymph node dissection in 2002. Admitted for total L modified radical mastectomy with sentinal node biopsy. Patient has recent work up significant for breast cancer necessitating elective left mastectomy; see bottom of course summary. Patient presents for total L modified radical mastectomy with sentinel lymph node biopsy, which was performed on 07/06/17. Procedure went well and patient was left with [address] which have thus far liberated mild amounts of serosanguinous fluid. There been no signs of postop infection throughout. Patient did have some nausea preclusive to discharge yesterday, however is feeling much better today. Has no nausea, vomiting, and does report strong appetite. Stable in all other regards. Anxious for discharge. Aftercare instructions, follow-up, and return precautions explained to the patient and provided to her in writing along with other educational handouts. Preceding work up: Screening mammogram 06/10/2017 revealed 2 adjacent new mass lesions 5 mm apart on the left: the closest to the nipple measures 0.8 x 1 cm and the other measures 0.9 x 1.1 cm with associated speculation. On June 16, ultrasound of the right breast revealed a 0.7 x 0.9 x 0.9 cm and a second 0.9 x 0.6 x 0.9 cm hypoechoic masses 5 mm apart in the 9:00 location of the left breast. Biopsy was obtained 06/20/2017 of both these masses with pathology revealing a grade 2 invasive ductal carcinoma. Pathology from site 1 was positive for invasive ductal carcinoma, grade 2, ER negative, MT negative, HER-2/bairon positive. Site 2 pathology demonstrated invasive ductal carcinoma, grade 2, ER negative, MT negative, HER-2/bairon negative. - Time Spent with Patient Total time spent providing and/or coordinating discharge services: - Discharge Medications Home Medications: ALPRAZolam [Xanax 0.5 MG Tablet] 0.5 mg PO BID PRN 08/12/16 [History] FLUoxetine HCl [Prozac] 40 mg PO QAM 08/12/16 [History] Cholecalciferol (Vitamin D3) [Vitamin D3] 10,000 unit PO DAILY 11/15/16 [History ] Docusate [Colace] 100 mg PO BID #30 capsule 07/07/17 [Rx] Ibuprofen 800 mg PO Q8H #42 tablet 07/07/17 [Rx] Ondansetron ODT [Zofran ODT] 4 mg PO Q6H PRN #15 tab.rapdis 07/07/17 [Rx] Oxycodone HCl/Acetaminophen [Endocet 5-325 Tablet] 1 each PO Q6H PRN 7 Days #28 tablet 07/07/17 [Rx] Allergies/Adverse Reactions: 3 Allergy/AdvReac Type Severity Reaction Status Date / Time No Known Allergies Allergy Verified 07/06/17 06:44 Date of admission: 07/08/17 12:01 Primary care physician: Melodie Calhoun CNP Consults: 07/06/17 12:59 Consult to Flight Attendant/Inflight Supervisor [CONS] Routine Reason for SW Consult: assess needs for home 07/06/17 13:20 Consult to Nutrition [CONS] Routine Comment: Consulting Provider: NUTRITION Reason for Dietary Consult: MST Score Discharging clinician: Fernando Henao Anticipated date of discharge: 07/09/17 Labs on day of discharge: Labs from last 24 hours 07/09/17 07/09/17 07/09/17 11:10 10:31 09:31 WBC RBC Hgb Hct MCV MCH MCHC RDW Plt Count MPV Immature Gran % Seg Neutrophils % Lymphocytes % Monocytes % Eosinophils % Basophils % Neutrophils # Lymphocytes # Monocytes # Eosinophils # Basophils # Sodium 133 L Potassium 3.7 Chloride 98 Carbon Dioxide 30 H BUN 24 H Creatinine 0.96 Est GFR ( Amer) > 60 Est GFR (Non-Af Amer) 59 L BUN/Creatinine Ratio 25 Glucose 107 H POC Glucose 98 Calculated Osmolality 281 Calcium 8.4 L Specimen Rejected Miscellaneous 07/09/17 07/09/17 07/08/17 09:31 05:20 23:17 WBC 4.3 RBC 3.66 L Hgb 10.2 L D Hct 33.4 L MCV 91.3 MCH 27.9 L MCHC 30.5 L RDW 14.8 H Plt Count 257 MPV 10.1 Immature Gran % 0.2 Seg Neutrophils % 55.4 Lymphocytes % 30.4 Monocytes % 10.0 Eosinophils % 3.5 Basophils % 0.5 Neutrophils # 2.4 Lymphocytes # 1.3 Monocytes # 0.4 Eosinophils # 0.2 Basophils # 0.0 Sodium Potassium Chloride Carbon Dioxide BUN Creatinine Est GFR ( Amer) Est GFR (Non-Af Amer) BUN/Creatinine Ratio Glucose POC Glucose 88 84 Calculated Osmolality Calcium Specimen Rejected 07/08/17 17:53 WBC RBC Hgb Hct MCV MCH MCHC RDW Plt Count MPV Immature Gran % Seg Neutrophils % Lymphocytes % Monocytes % Eosinophils % Basophils % Neutrophils # Lymphocytes # Monocytes # Eosinophils # Basophils # Sodium Potassium Chloride Carbon Dioxide BUN Creatinine Est GFR ( Amer) Est GFR (Non-Af Amer) BUN/Creatinine Ratio Glucose POC Glucose 99 Calculated Osmolality Calcium Specimen Rejected - Impressions ITS Impressions Chest X-Ray 07/06/17 07:15 IMPRESSION: No acute process. Hyperinflated lungs suggestive of COPD. D/ / Tim Kirk MD / Tim Kirk MD Interpreting Provider: Tim Kirk MD [place] Node Without Imaging Nuclear Med 07/06/17 07:30 IMPRESSION: No images were acquired. Successful left breast radiopharmaceutical administration in anticipation of intraoperative lymph node localization. D/ / 07/06/2017 08:53:05 Pavel Block MD / Jacquie Mohan Interpreting Provider: Pavel Block MD X-Ray 07/08/17 09:14 IMPRESSION: 1. Question of free intraperitoneal air. CT imaging is suggested for further evaluation. 2. Dilated loops of bowel. Consider bowel obstruction. 3. The enteric tube has its tip within the mid gastric body. This report was discussed with Dr. eBrry at 10:12 a.m. on 07/08/2017. D/ / 07/08/2017 10:27:47 Maikol Oconnell MD / ben Interpreting Provider: Maikol Oconnell MD Abdomen/Pelvis CT 07/08/17 10:26 IMPRESSION: 1. 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 These findings have been identified on numerous prior CT exams in 2017 and 2015 though are progressed on today's exam. 2. Mild free intraperitoneal air consistent with perforation. This also was not identified on numerous prior exams suggesting recurrent perforation secondary to the pneumatosis. 3. The aorta, visceral artery origins and portal veins are patent. 4. No definite obstruction or abscess. 5. Mild peritoneal edema and trace ascites. 6. Stable right adrenal nodule compared to a prior 07/12/2014 exam consistent with a adenoma. Critical results were called by Dr. Pavel Block MD to Denny Berry on 07/08/2017 at 12:31. D/ / 07/08/2017 12:40:46 Pavel Block MD / ben Interpreting Provider: Pavel Block MD - Patient Status Disposition: Home, Self-Care Condition: Fair Overall status at discharge: patient is progressing back to baseline - Discharge Instructions Instructions: Reynaldo-Anaya Drain Care (GEN), Mastectomy (DC) Follow Up With: Sacha Guevara MD [Non-Partnered Physician] - 07/13/17 9:30 am Additional Instructions: Please review all discharge educational handouts. Please attend scheduled follow-up appointments; appointment dates and times will be provided for you. Your appointment with Dr. Guevara is 07/13/2017 at 0930 AM. You are prescribed medication for pain, nausea, and constipation to be used if/ as needed; take as written. Avoid driving if your pain requires that you take opioid analgesics Call ' office if you have fever/chills/sweats/body aches, nausea, vomiting, constipation not relieved with meds you have been prescribed, significant abdominal pain after eating, blood in your stools or blackened stools, or signs of infection at your incision sites (includes increasing redness, increasing warmth, swelling, or pus). Avoid heavy lifting over 15lbs at least until you're reevaluated in the surgical clinic. Wound Care: shower with antibacterial soap; allow water to only passively run over surgical sites, avoid firm scrubbing of incisions. May leave incisions open to air or cover with a dry dressing for comfort. Tape to secure. Reinforce or change outer dressing as needed. MALENA drains: remove drain sponge. Shower/wash with antibacterial soap. Replace drain sponge. Cover with a dry dressing. Tape to secure. Do not let the MALENA drain dangle from your body. Secure the ball to clothing with a safety pin or suspend from a lanyard when showering. Measure and log output of your MALENA bulbs every time you empty them; bring this information with you to your appointment. Call your PCP for other concerns if any arise. - Diet and Activity Activity: increase activity as tolerated Diet: advance to your usual diet
== END 2017-07-09 15:00 | disposition home or self-care (01) | DRG 581 ==
LOC: SAMDAY 06:17 → 3ANU 13:26
PROVIDERS: ADMIT Surgery; ATTEND Surgery
PROC: GENSENT (ICD-10-PCS; 2017-07-06 09:30)

== ENCOUNTER 2019-08-18 14:34 | Inpatient (IN) ==
[2019-08-18] MEDS ORDERED: *HR* OxyCODONE/APAP 5/325 TABLET PO ONE (16:05)
[2019-08-18] MEDS ORDERED: Gadolinium Contrast Agent (WT Based) IV PRN (16:57)
[2019-08-18 18:57] LABS: Basophils % 0.4 %; Eosinophils # 0.2 K/mcL (0.0-0.6); Eosinophils % 2.9 %; Hematocrit 42.3 % (35.3-44.9); Hemoglobin 13.9 g/dL (11.5-15.4); Immature Granulocytes % 0.3 % (0-4); Lymphocytes # 1.5 K/mcL (0.6-4.6); Lymphocytes % 19.2 %; Mean Corpuscular HGB Conc 32.9 g/dL (31.6-35.5); Mean Corpuscular Hemoglobin 31.2 pg (28.0-33.3); Mean Corpuscular Volume 94.8 fL (83.0-100.0); Mean Platelet Volume 9.5 fL (9.4-12.4); Monocytes # 0.4 K/mcL (0.0-1.3); Monocytes % 5.6 %; Neutrophils # 5.7 K/mcL (1.6-8.9); Platelet Count 268 K/mcL (140-400); Red Blood Count 4.46 M/mcL (3.82-4.97); Red Cell Distribution Width 13.8 % (11.5-14.5); Segmented Neutrophils % 71.6 %; White Blood Count 7.9 K/mcL (4.3-11.1)
[2019-08-18] MEDS ORDERED: Morphine Sulfate 2 MG/ML SYRINGE IVP ONE (19:00)
[2019-08-18 19:16] LABS: BUN/Creatinine Ratio 23 (6-26); Blood Urea Nitrogen 17 mg/dL (8-23); Calcium 9.7 mg/dL (8.6-10.3); Carbon Dioxide 24 mEq/L (23-29); Chloride 104 mEq/L (98-107); Glucose 86 mg/dL (70-105); Osmolality,Calculated 277 (280-300); Potassium 4.7 mEq/L (3.5-5.1); Sodium 133 mEq/L (136-145); eGFR For African Americans > 60 (> 60); eGFR For Non-African Americans > 60 (> 60)
[2019-08-18] MEDS ORDERED: Naloxone 0.4 MG/ML INJ IVP PRN (19:59)
[2019-08-18] MEDS ORDERED: Ondansetron 4 MG/2 ML VIAL IVP PRN (19:59)
[2019-08-19] MEDS: Ketorolac 15 MG/ML VIAL IVP PRN ×4 (00:41→22:36)
[2019-08-19 01:44] LABS: Basophils % 0.6 %; Eosinophils # 0.4 K/mcL (0.0-0.6); Eosinophils % 4.9 %; Hematocrit 43.3 % (35.3-44.9); Immature Granulocytes % 0.3 % (0-4); Lymphocytes % 27.6 %; Mean Corpuscular HGB Conc 32.3 g/dL (31.6-35.5); Mean Corpuscular Hemoglobin 30.6 pg (28.0-33.3); Mean Corpuscular Volume 94.5 fL (83.0-100.0); Mean Platelet Volume 9.8 fL (9.4-12.4); Monocytes # 0.5 K/mcL (0.0-1.3); Monocytes % 6.9 %; Neutrophils # 4.3 K/mcL (1.6-8.9); Platelet Count 293 K/mcL (140-400); Red Blood Count 4.58 M/mcL (3.82-4.97); Segmented Neutrophils % 59.7 %; White Blood Count 7.2 K/mcL (4.3-11.1)
[2019-08-19 02:00] LABS: Alanine Aminotransferase 11 Units/L (7-52); Albumin 3.7 g/dL (3.5-5.7); Albumin/Globulin Ratio 1.1 (1.1-2.2); Alkaline Phosphatase 71 Units/L (34-104); Aspartate Amino Transferase 19 Units/L (13-39); BUN/Creatinine Ratio 21 (6-26); Bilirubin,Total 0.3 mg/dL (0.3-1.0); Blood Urea Nitrogen 15 mg/dL (8-23); Calcium 9.1 mg/dL (8.6-10.3); Carbon Dioxide 25 mEq/L (23-29); Chloride 104 mEq/L (98-107); Globulin 3.3 g/dL (2.4-3.5); Glucose 107 mg/dL (70-105); Osmolality,Calculated 281 (280-300); Potassium 3.9 mEq/L (3.5-5.1); Sodium 135 mEq/L (136-145); eGFR For African Americans > 60 (> 60); eGFR For Non-African Americans > 60 (> 60)
[2019-08-19] MEDS ORDERED: 0.9 % Sodium Chloride 1,000 ML IVC SCH (02:00)
[2019-08-19] MEDS: FLUoxetine 20 MG CAPSULE PO SCH (09:00)
[2019-08-19] MEDS: Cholecalciferol (D-3) 1,000 UNIT (25MCG) TABLET PO SCH (09:00)
[2019-08-19] MEDS: Multivit/Ca/Min/Fe/FA 1 TAB TABLET PO SCH (09:01)
[2019-08-20 04:49] LABS: Hematocrit 42.4 % (35.3-44.9); Hemoglobin 13.7 g/dL (11.5-15.4); Mean Corpuscular HGB Conc 32.3 g/dL (31.6-35.5); Mean Corpuscular Hemoglobin 31.1 pg (28.0-33.3); Mean Corpuscular Volume 96.1 fL (83.0-100.0); Mean Platelet Volume 9.6 fL (9.4-12.4); Platelet Count 230 K/mcL (140-400); Red Blood Count 4.41 M/mcL (3.82-4.97); Red Cell Distribution Width 13.7 % (11.5-14.5); White Blood Count 7.3 K/mcL (4.3-11.1)
[2019-08-20 05:17] LABS: BUN/Creatinine Ratio 23 (6-26); Blood Urea Nitrogen 21 mg/dL (8-23); Calcium 8.8 mg/dL (8.6-10.3); Carbon Dioxide 19 mEq/L (23-29); Chloride 105 mEq/L (98-107); Glucose 98 mg/dL (70-105); Osmolality,Calculated 275 (280-300); Potassium 4.4 mEq/L (3.5-5.1); Sodium 131 mEq/L (136-145); eGFR For African Americans > 60 (> 60); eGFR For Non-African Americans > 60 (> 60)
[2019-08-20] MEDS: Ketorolac 15 MG/ML VIAL IVP PRN ×2 (05:42→13:26)
[2019-08-20] MEDS: Multivit/Ca/Min/Fe/FA 1 TAB TABLET PO SCH (08:01)
[2019-08-20] MEDS: FLUoxetine 20 MG CAPSULE PO SCH (08:01)
[2019-08-20] MEDS: Cholecalciferol (D-3) 1,000 UNIT (25MCG) TABLET PO SCH (08:02)
[2019-08-20] MEDS: Gabapentin 100 MG CAPSULE PO SCH ×2 (09:36→17:13)
[2019-08-20] MEDS ORDERED: Bacitracin 50,000 UNIT, Polymyxin B Sulfate 500,000 UNIT, Sodium Chloride IRRigation 1,... IR ONE (12:00)
[2019-08-20] MEDS ORDERED: *HR* Succinylcholine 200 MG/10 ML VIAL IVP ONE (17:44)
[2019-08-20] MEDS ORDERED: Lidocaine -MPF 2% 2 ML VIAL ONE (17:44)
[2019-08-20] MEDS ORDERED: Lidocaine HCL 4 ML Topical Solution (Laryng-O-Jet Kit Sterile Pak) TP ONE (17:44)
[2019-08-20] MEDS ORDERED: *HR* Rocuronium Bromide 50 MG/5 ML VIAL ONE (17:44)
[2019-08-20] MEDS ORDERED: Dexamethasone 4 MG/ML VIAL ONE (17:44)
[2019-08-20] MEDS ORDERED: *HR* Promethazine 25 MG/ML VIAL IVP PRN (17:45)
[2019-08-20] MEDS ORDERED: *HR* HYDROmorphone PF 0.5 MG/0.5 ML SYRINGE IVP PRN (17:45)
[2019-08-20] MEDS ORDERED: *HR* Propofol 200 MG/20 ML VIAL IVP ONE (17:45)
[2019-08-20] MEDS ORDERED: *HR* Labetalol 20 MG/4 ML SYRINGE IVP PRN (17:45)
[2019-08-20] MEDS ORDERED: Ondansetron 4 MG/2 ML VIAL IVP PRN ×2 (17:45→20:57)
[2019-08-20] MEDS ORDERED: ceFAZolin 2,000 MG in Water for inj. (sterile) 20 ML IVP ONE (18:17)
[2019-08-20] MEDS ORDERED: *HR* FentaNYL (PF) 100 MCG/2 ML VIAL ONE (18:51)
[2019-08-20] MEDS ORDERED: *HR* PHENYLEPHRINE 1,000 MCG/10 ML SYRINGE IVP ONE (19:11)
[2019-08-20] MEDS ORDERED: Acetaminophen IV 1,000 MG/100 ML INFUS..BTL ONE (19:51)
[2019-08-20] MEDS ORDERED: *HR* OxyCODONE Immed Rel 5 MG TABLET PO PRN (20:57)
[2019-08-20] MEDS ORDERED: Ringers Solution, Lactated 1,000 ML IVC SCH (20:57)
[2019-08-20] MEDS ORDERED: Naloxone 0.4 MG/ML INJ IVP PRN (20:57)
[2019-08-20] MEDS ORDERED: *HR* HYDROcodone/Acet 5/325 mg TABLET PO PRN (20:57)
[2019-08-20] MEDS ORDERED: Acetaminophen 325 MG TABLET PO PRN (20:57)
[2019-08-20] MEDS: CeFAZolin 2 GM/120 ML BAG IVPB SCH (23:54)
[2019-08-21 07:03] VITALS: BP 142/86
[2019-08-21] MEDS: CeFAZolin 2 GM/120 ML BAG IVPB SCH (07:34)
[2019-08-21 08:46] LABS: Hematocrit 40.5 % (35.3-44.9); Mean Corpuscular HGB Conc 32.1 g/dL (31.6-35.5); Mean Corpuscular Hemoglobin 30.4 pg (28.0-33.3); Mean Corpuscular Volume 94.6 fL (83.0-100.0); Mean Platelet Volume 9.6 fL (9.4-12.4); Platelet Count 256 K/mcL (140-400); Red Blood Count 4.28 M/mcL (3.82-4.97); Red Cell Distribution Width 13.6 % (11.5-14.5); White Blood Count 7.3 K/mcL (4.3-11.1)
[2019-08-21 09:08] LABS: BUN/Creatinine Ratio 19 (6-26); Blood Urea Nitrogen 13 mg/dL (8-23); Calcium 8.9 mg/dL (8.6-10.3); Carbon Dioxide 22 mEq/L (23-29); Chloride 106 mEq/L (98-107); Glucose 112 mg/dL (70-105); Osmolality,Calculated 277 (280-300); Potassium 4.7 mEq/L (3.5-5.1); Sodium 133 mEq/L (136-145); eGFR For African Americans > 60 (> 60); eGFR For Non-African Americans > 60 (> 60)
== END 2019-08-21 11:15 | disposition home or self-care (01) | DRG 520 ==
LOC: 3NENU 14:34 → EMEROOARM 14:34 → SUATTDRO 20:40 → 3NENU 21:17
PROVIDERS: ADMIT Internal Medicine; ATTEND Family Medicine